=== PATIENT | female | born 1990 | race Two or more races ===

== ENCOUNTER 2016-07-31 14:47 | Emergency (ER) | payer OTHER ==
[2016-07-31 14:50] VITALS: BP 137/85; PULSE 79; TEMP 98; BMI 24.9
--- NOTE | 2016-07-31 15:06 | PDOC ---
History of Present Illness - General Chief Complaint: ,Possible Stated Complaint: POSSIBLE , LAB WORK Time Seen by Provider: 07/31/16 14:58 History Source: Patient - History of Present Illness Associated Symptoms: denies: nausea/vomiting Past History - Past Medical History Allergies/Adverse Reactions: Allergies Allergy/AdvReac Type Severity Reaction Status Date / Time acetaminophen [From Tylenol] Allergy Verified 07/31/16 14:51 aspirin Allergy Verified 07/31/16 14:51 Home Medications: Ambulatory Orders NK [No Known Home Medication] 07/31/16 - Reproductive History (#): 3 Para: 1 Spontaneous : 2 - Immunization History Immunization Up to Date: No - Psycho/Social/Smoking Cessation Hx Anxiety: No Suicidal Ideation: No Smoking History: Never smoked Have you smoked in the past 12 months: No Information on smoking cessation initiated: No Hx Alcohol Use: No Drug/Substance Use Hx: No Substance Use Type: None Review of Systems - Review of Systems Constitutional: No: Chills, Fever ABD/GI: No: Nausea, Vomiting : No: Dysuria *Physical Exam - Vital Signs Last Vital Signs Temp Pulse Resp BP Pulse Ox 98 F 79 18 137/85 98 07/31/16 14:48 07/31/16 14:48 07/31/16 14:48 07/31/16 14:48 07/31/16 14:48 - Physical Exam General Appearance: Yes: Appropriately Dressed. No: Apparent Distress HEENT: positive: Normal Voice Neck: positive: Supple Respiratory/Chest: negative: Respiratory Distress Gastrointestinal/Abdominal: positive: Soft. negative: Tender Integumentary: positive: Dry, Warm Neurologic: positive: Fully Oriented, Alert, Normal Mood/Affect Medical Decision Making - Medical Decision Making 07/31/16 15:00 26 yo F, no sig hx, here for test because of irreg menses. Not on control. No abd pain, dysuria, n/v. Pt well trish and stable w/ unremarkale exam. Upreg negative. Discharge w/ tumblers supervisor f/u 07/31/16 15:28 Pt requesting blood test for despite being told that urine test is able to detect early . Of note, pt has h/o presenting to ED for tests which are usually negative. When pt informed that we would not be getting a blood test, pt became angry and verbally abusive to staff but signed her discharge papers and left without incident 07/31/16 15:31 07/31/16 15:37 *DC/Admit/Observation/Transfer Diagnosis at time of Disposition: test negative - Discharge Dispostion Disposition: HOME Condition at time of disposition: Good - Patient Instructions Additional Instructions: prueba de embarazo es negativa hoy. Nuestra prueba de orina detecta el embarazo muy pronto, por lo que no hay necesidad de un anlisis de marcelino. Por favor, siga con NEWSPAPER PEDDLER segn sea necesario
[2016-07-31 15:22] LABS: URINE APPEARANCE CLEAR; URINE BILIRUBIN NEGATIVE (NEGATIVE); URINE BLOOD NEGATIVE (NEGATIVE); URINE COLOR YELLOW; URINE GLUCOSE (UA) NEGATIVE (NEGATIVE); URINE KETONE NEGATIVE (NEGATIVE); URINE LEUK ESTERASE NEGATIVE (NEGATIVE); URINE NITRITE NEGATIVE (NEGATIVE); URINE PROTEIN NEGATIVE (NEGATIVE); URINE UROBILINOGEN NEGATIVE E.U./dl (0.2-1.0)
== END 2016-07-31 15:34 | disposition home or self-care (01) ==
LOC: JERFT 14:47
DX: Z32.02 Encounter for pregnancy test, result negative (principal)
CPT/HCPCS: 81003; 84703; 99281-25

== ENCOUNTER 2016-08-23 12:59 | Emergency (ER) | payer OTHER ==
[2016-08-23 13:06] VITALS: BP 112/49; PULSE 78; TEMP 98.5; BMI 25.7
--- NOTE | 2016-08-23 13:47 | PDOC ---
History of Present Illness - General Chief Complaint: Vaginal Bleeding Stated Complaint: BLEEDING () Time Seen by Provider: 08/23/16 13:15 History Source: Patient, Pick Up Man Used Exam Limitations: Language Barrier - History of Present Illness Travel History: No Initial Comments: 08/23/16 14:52 26 yr female states LMP 05/25/16 had lower abd cramping for one month noticed light brown spotting yesterday and had positive test yesterday. Pt is 2 miscarriages at 8 weeks. Pt states she has no back pain no fever no chills. no urinary symptoms, Past History - Past Medical History Allergies/Adverse Reactions: Allergies Allergy/AdvReac Type Severity Reaction Status Date / Time acetaminophen [From Tylenol] Allergy Verified 08/23/16 13:06 aspirin Allergy Verified 08/23/16 13:06 Home Medications: Ambulatory Orders NK [No Known Home Medication] 07/31/16 Other medical history: NONE - Surgical History Abdominal Surgery: Yes (csection ) - Reproductive History LMP Normal: Yes Is Patient Now?: Yes (#): 4 Para: 1 Spontaneous : 2 - Immunization History Immunization Up to Date: No - Psycho/Social/Smoking Cessation Hx Anxiety: No Suicidal Ideation: No Smoking History: Never smoked Have you smoked in the past 12 months: No Hx Alcohol Use: No Drug/Substance Use Hx: No Substance Use Type: None Abd/GI Specific PMHX - Complaint Specific PMHX Colitis: No Diverticulitis: No Gall Bladder Disease: No GERD: No Hepatitis: No Irritable Bowel Synd (IBS): No Pancreatitis: No GI Ulcer Disease: No Review of Systems - Review of Systems Able to Perform ROS?: Yes Is the patient limited Cymraes proficient: No Constitutional: No: Symptoms Reported, Unintentional Wgt. Loss Respiratory: No: Symptoms reported Cardiac (ROS): No: Symptoms Reported ABD/GI: Yes: Symptoms Reported : No: Symptoms Reported *Physical Exam - Vital Signs Last Vital Signs Temp Pulse Resp BP Pulse Ox 98.5 F 78 20 112/49 100 08/23/16 13:01 08/23/16 13:01 08/23/16 13:01 08/23/16 13:01 08/23/16 13:01 - Physical Exam General Appearance: Yes: Nourished, Appropriately Dressed HEENT: positive: EOMI, ASHWIN Neck: positive: Supple Respiratory/Chest: positive: Lungs Clear, Normal Breath Sounds Cardiovascular: positive: Regular Rhythm, Regular Rate Female Pelvic Exam: positive: cervical os closed, other (light brown spotting ) Gastrointestinal/Abdominal: positive: Normal Bowel Sounds, Soft. negative: Tender Musculoskeletal: positive: Normal Inspection Extremity: positive: Normal Capillary Refill, Normal Inspection, Normal Range of Motion ED Treatment Course - LABORATORY CBC & Chemistry Diagram: 08/23/16 14:57 Medical Decision Making - Medical Decision Making 08/23/16 14:54 cc: spotting LMP 05/25/16 approx 12 weeks with lower abd cramping and spotting afebrile no vaginal discharge or urinary symptoms will r/o ectopic r/o miscarriage 08/23/16 follow up with your window draper in 48hrs for repeat blood work and Ultrasound or return to the ER. 08/23/16 18:38 *DC/Admit/Observation/Transfer Diagnosis at time of Disposition: Threatened - Referrals Referrals: Herson Rousseau MD [Primary Care Provider] - Romina Fisher MD [Staff Physician] - - Patient Instructions Additional Instructions: please call your OB tomorrow to make appointment to see them in 2 days return to ER in 2 days for follow up blood work and Ultrasound avoid any sexual activity until symptoms have stopped. Please drink pleanty of water to stay hydrated Return to the ER for any pain, heavy bleeding or other concerns Por favor llame a us OB maana para hacer ana para verlos en 2 grimes Volver a ER en 2 grimes para el seguimiento del trabajo de marcelino y ultrasonido Evitar cualquier actividad sexual hasta que los sntomas se hayan detenido. Por favor, ayo abundantemente de agua para mantenerse hidratado Regrese al ER para cualquier dolor, sangrado abundante u otras preocupaciones Print Language: BULGARIAN
[2016-08-23 15:03] LABS: BASOPHIL 0.4 % (0-2.0); EOSINOPHIL 0.5 % (0-4.5); MCH 30.3 pg (25.7-33.7); MCHC 33.2 g/dl (32.0-36.0); MEAN CELL VOLUME 91.4 fl (80-96); MEAN PLT VOLUME 7.4 fl (7.5-11.1); PLATELET COUNT 315 K/MM3 (134-434); RDW 13.1 % (11.6-15.6); WHITE BLOOD COUNT 8.4 K/mm3 (4.0-10.0)
[2016-08-23 15:10] LABS: URINE APPEARANCE CLEAR; URINE BILIRUBIN NEGATIVE (NEGATIVE); URINE BLOOD NEGATIVE (NEGATIVE); URINE COLOR LTYELLOW; URINE GLUCOSE (UA) NEGATIVE (NEGATIVE); URINE KETONE NEGATIVE (NEGATIVE); URINE LEUK ESTERASE NEGATIVE (NEGATIVE); URINE NITRITE NEGATIVE (NEGATIVE); URINE PROTEIN NEGATIVE (NEGATIVE); URINE UROBILINOGEN NEGATIVE E.U./dl (0.2-1.0)
[2016-08-23 15:16] LABS: INR 1.04 (0.82-1.09); PROTHROMBIN TIME (PATIENT) 11.5 SEC (9.98-11.88)
[2016-08-23 18:42] LABS: URINE APPEARANCE CLEAR; URINE BILIRUBIN NEGATIVE (NEGATIVE); URINE BLOOD NEGATIVE (NEGATIVE); URINE COLOR YELLOW; URINE GLUCOSE (UA) NEGATIVE (NEGATIVE); URINE KETONE TRACE (NEGATIVE); URINE LEUK ESTERASE NEGATIVE (NEGATIVE); URINE NITRITE NEGATIVE (NEGATIVE); URINE PROTEIN NEGATIVE (NEGATIVE); URINE UROBILINOGEN NEGATIVE E.U./dl (0.2-1.0)
== END 2016-08-23 19:38 | disposition home or self-care (01) ==
LOC: JER 12:59
DX: O20.0 Threatened abortion (principal); Z3A.12 12 weeks gestation of pregnancy
CPT/HCPCS: 36415; 76817-TC; 81003; 84702; 84703; 85025; 85610; 86850; 86900; 86901; 99283-25

== ENCOUNTER 2016-08-25 09:55 | Emergency (ER) | payer OTHER ==
[2016-08-25 10:06] VITALS: BP 109/57; PULSE 78; TEMP 98; BMI 25.7
--- NOTE | 2016-08-25 11:08 | PDOC ---
History of Present Illness - General Chief Complaint: Revisit, Lab Variance Stated Complaint: FOLLOW-UP Time Seen by Provider: 08/25/16 10:33 History Source: Patient Exam Limitations: No Limitations - History of Present Illness Initial Comments: 08/25/16 11:30 Patient return to emergency department for reevaluation of the hCG and ultrasound. Was seen here on August 23 [place] [id number]. States has continued cramping, however no bleeding, no fevers, no nausea vomiting but states feels generally malaise . 08/25/16 11:30 Past History - Travel Traveled outside of the country in the last 30 days: No Close contact w/someone who was outside of country & ill: No - Past Medical History Allergies/Adverse Reactions: Allergies Allergy/AdvReac Type Severity Reaction Status Date / Time acetaminophen [From Tylenol] Allergy Verified 08/25/16 10:02 aspirin Allergy Verified 08/25/16 10:02 Home Medications: Ambulatory Orders NK [No Known Home Medication] 07/31/16 Other medical history: DENIES. - Surgical History Abdominal Surgery: Yes (csection ) - Reproductive History (#): 4 Para: 1 Therapeutic (s) & number: No Spontaneous : 2 - Immunization History Immunization Up to Date: No - Psycho/Social/Smoking Cessation Hx Anxiety: No Suicidal Ideation: No Smoking History: Never smoked Have you smoked in the past 12 months: No Hx Alcohol Use: No Drug/Substance Use Hx: No Substance Use Type: None Review of Systems - Review of Systems Able to Perform ROS?: Yes Is the patient limited Burkinan proficient: Yes Constitutional: Yes: Symptoms Reported, See HPI, Malaise HEENTM: Yes: Symptoms Reported, See HPI Respiratory: No: Symptoms reported ABD/GI: Yes: Symptoms Reported, See HPI, Abdominal cramping (low ) : Yes: See HPI. No: Symptoms Reported Musculoskeletal: Yes: See HPI, Muscle Pain. No: Symptoms Reported Integumentary: Yes: Symptoms Reported All Other Systems: Reviewed and Negative *Physical Exam - Vital Signs Last Vital Signs Temp Pulse Resp BP Pulse Ox 98 F 78 19 109/57 99 08/25/16 10:02 08/25/16 10:02 08/25/16 10:02 08/25/16 10:02 08/25/16 10:02 - Physical Exam General Appearance: Yes: Nourished, Appropriately Dressed, Apparent Distress, Mild Distress HEENT: positive: ASHWIN, Normal ENT Inspection, TMs Normal, Pharynx Normal Neck: positive: Tender, Supple. negative: Lymphadenopathy (R), Lymphadenopathy (L) Respiratory/Chest: positive: Lungs Clear, Normal Breath Sounds Cardiovascular: positive: Regular Rhythm, Regular Rate Gastrointestinal/Abdominal: positive: Normal Bowel Sounds, Soft. negative: Tender, Guarding, Rebound Musculoskeletal: positive: Normal Inspection. negative: CVA Tenderness Extremity: positive: Normal Capillary Refill, Normal Inspection, Normal Range of Motion Integumentary: positive: Normal Color, Dry, Warm, Pale Neurologic: positive: sheet heater II-XII NML intact, Fully Oriented, Alert, Normal Mood/ Affect, Normal Response, Motor Strength 08/18 ED Treatment Course - RADIOLOGY Radiology Studies Ordered: Category Date Time Status TRANSVAGINAL US PREG [US] Stat Ultrasound 08/25/16 11:05 Ordered Medical Decision Making - Medical Decision Making 08/25/16 11:06 08/25/16 11:06 08/25/16 11:32 08/25/16 11:34 08/25/16 12:56 Ultrasound reveals intrauterine with approximately 5-6 weeks gestational age, heart rate of 120 right ovarian cyst with some fluid. Beta hCG 23,000 which is appropriately doubled from 15,002 days ago. Follow-up with OB/ INVESTIGATOR INTERNAL AFFAIRS in 4 days as scheduled, and understands needs to return for fever, bleeding , worsen pain or problems *DC/Admit/Observation/Transfer Diagnosis at time of Disposition: Normal in first trimester - Discharge Dispostion Disposition: HOME Condition at time of disposition: Stable Admit: No - Patient Instructions Printed Discharge Instructions: DI for Abdominal Pain -- Early Additional Instructions: Rest, drink lots of fluids: Teas, water, soups Kari jessica, carbonated beverages for the bubbles May try peppermint teas Avoid heavy , spicy or fatty foods until symptoms have resolved Avoid contact with others until fevers and symptoms resolved Lots of handwashing and good hygiene Continue [id number] medications for symptomatic relief Followup with private physician in one to 2 days as needed See MEDIA LIAISON OFFICER as scheduled in 4 days Return to emergency department for worsened symptoms, fevers, dehydration
== END 2016-08-25 12:59 | disposition home or self-care (01) ==
LOC: JERFT 09:55
DX: O26.891 Other specified pregnancy related conditions, first trimester (principal); O34.81 Maternal care for other abnormalities of pelvic organs, first trimester; N83.291 Other ovarian cyst, right side; Z3A.01 Less than 8 weeks gestation of pregnancy
CPT/HCPCS: 36415; 76817-TC; 84702; 99281-25

== ENCOUNTER 2016-09-12 10:32 | Emergency (ER) | payer OTHER ==
[2016-09-12 10:38] VITALS: BMI 26.1
[2016-09-12] MEDS ORDERED: ONDANSETRON 4 MG/2 ML VIAL ONE (11:56)
--- NOTE | 2016-09-12 11:57 | PDOC ---
History of Present Illness - General History Source: Patient, Old Records Exam Limitations: No Limitations - History of Present Illness Initial Comments: 09/12/16 13:00 The patient is a 26 year old female who is currently 6 weeks , A2 with no significant past medical history, who presents to the emergency department with vaginal bleeding, abdominal pain, chills, nausea, vomit and dizziness for the past 3 weeks. She states that her vaginal bleeding is mild in nature. She also states that her abdominal pain ranges from mild to moderare, with radiation to the back. She notes that standing exacerbates her pain, especially in the back. The patient was seen in the ED twice before this visit and had blood work and ultrasounds that were normal for her current . She states that since her last visit to the ED on 08/25/2016, she has seen her BODY SHOP ESTIMATOR who sent her to do another ultrasound, which she does not know the results of. She notes hat she has been attempting to reach her BODY SHOP ESTIMATOR for the past 4 days and finally got in touch today, whom advised her to come to the ED for evaluation. The patient denies chest pain, shortness of breath and headache. Denies fever, diarrhea and constipation. Denies dysuria, frequency, urgency and hematuria. Allergies: Tylenol Past surgical history: Social history: No alcohol, tobacco or drug use reported BODY SHOP ESTIMATOR - Dr. Ambar Damon <Rosas Nolasco - Last Filed: 09/12/16 13:00> - General History Source: Patient Exam Limitations: No Limitations <Vi Espinoza - Last Filed: 09/13/16 08:15> - General Chief Complaint: Vaginal Bleeding Stated Complaint: PAIN (8 VAGINAL BLEED) Time Seen by Provider: 09/12/16 10:52 Past History <Rosas Nolasco - Last Filed: 09/12/16 13:00> - Past Medical History Other medical history: denies - Surgical History Abdominal Surgery: Yes (csection ) - Reproductive History (#): 4 Para: 1 Therapeutic (s) & number: No Spontaneous : 2 - Immunization History Immunization Up to Date: No - Psycho/Social/Smoking Cessation Hx Anxiety: No Suicidal Ideation: No Smoking History: Never smoked Have you smoked in the past 12 months: No Information on smoking cessation initiated: No Hx Alcohol Use: No Drug/Substance Use Hx: No Substance Use Type: None <Vi Espinoza - Last Filed: 09/13/16 08:15> - Past Medical History Allergies/Adverse Reactions: Allergies Allergy/AdvReac Type Severity Reaction Status Date / Time acetaminophen [From Tylenol] Allergy Verified 09/12/16 10:38 aspirin Allergy Verified 09/12/16 10:38 Home Medications: Ambulatory Orders Metoclopramide HCl [Reglan] 5 mg PO TID PRN #21 tablet 09/12/16 Review of Systems - Review of Systems Able to Perform ROS?: Yes Comments:: 09/12/16 13:01 GENERAL/CONSTITUTIONAL: (+) Chills. No fever. No weakness. HEAD, EYES, EARS, NOSE AND THROAT: No change in vision. No ear pain or discharge. No sore throat. CARDIOVASCULAR: No chest pain or shortness of breath RESPIRATORY: No cough, wheezing, or hemoptysis. GASTROINTESTINAL: (+) Abdominal pain, nausea, vomit. No diarrhea or constipation. GENITOURINARY: No dysuria, frequency, or change in urination. MUSCULOSKELETAL: (+) Back pain. No joint or muscle swelling or pain. No neck pain. SKIN: No rash NEUROLOGIC: (+) Dizziness. No headache, loss of consciousness, or change in strength/sensation. ENDOCRINE: No increased thirst. No abnormal weight change HEMATOLOGIC/LYMPHATIC: No anemia, easy bleeding, or history of blood clots. ALLERGIC/IMMUNOLOGIC: No hives or skin allergy. <Rosas Nolasco - Last Filed: 09/12/16 13:00> *Physical Exam - Vital Signs Last Vital Signs Temp Pulse Resp BP Pulse Ox 97.9 F 75 18 103/61 100 09/12/16 10:36 09/12/16 10:36 09/12/16 10:36 09/12/16 10:36 09/12/16 10:36 - Physical Exam Comments: 09/12/16 13:02 GENERAL: Awake, alert, and fully oriented, in no acute distress HEAD: No signs of trauma, normocephalic, atraumatic EYES: PERRLA, EOMI, sclera anicteric, conjunctiva clear ENT: Auricles normal inspection, hearing grossly normal, nares patent, oropharynx clear without exudates. Moist mucosa NECK: Normal ROM, supple, no lymphadenopathy, JVD, or masses LUNGS: No distress, speaks full sentences, clear to auscultation bilaterally HEART: Regular rate and rhythm, normal S1 and S2, no murmurs, rubs or gallops, peripheral pulses normal and equal bilaterally. ABDOMEN: Soft, nontender, normoactive bowel sounds. No guarding, no rebound. No masses EXTREMITIES: Normal inspection, Normal range of motion, no edema. No clubbing or cyanosis. NEUROLOGICAL: Cranial nerves II through XII grossly intact. Normal speech, normal gait, no focal sensorimotor deficits SKIN: Warm, Dry, normal turgor, no rashes or lesions noted. <Rosas Nolasco - Last Filed: 09/12/16 13:00> - Vital Signs Last Vital Signs Temp Pulse Resp BP Pulse Ox 97.9 F 75 18 103/61 100 09/12/16 10:36 09/12/16 10:36 09/12/16 10:36 09/12/16 10:36 09/12/16 10:36 <Vi Espinoza - Last Filed: 09/13/16 08:15> ED Treatment Course - LABORATORY CBC & Chemistry Diagram: 09/12/16 12:10 09/12/16 12:10 - ADDITIONAL ORDERS Additional order review: Laboratory Results 09/12/16 09/12/16 09/12/16 12:10 12:10 12:10 Sodium 135 L Potassium 4.0 Chloride 101 Carbon Dioxide 28 Anion Gap 6 L BUN 12 Creatinine 0.6 Creat Clearance w eGFR > 60 Random Glucose 87 Calcium 9.2 Total Bilirubin 0.8 AST 10 L ALT 15 Alkaline Phosphatase 53 Total Protein 7.6 Albumin 3.8 Beta HCG, Quant 093400.2 Urine Color Yellow Urine Appearance Clear Urine pH 6.0 Urine Protein Negative Urine Glucose (UA) Negative Urine Ketones Negative Urine Blood 1+ H Urine Nitrite Negative Urine Bilirubin Negative Urine Urobilinogen Negative Ur Leukocyte Esterase Trace H Blood Type A POSITIVE Antibody Screen Negative 09/12/16 12:10 RBC 3.98 MCV 90.6 MCHC 35.2 RDW 12.7 MPV 7.7 Neutrophils % 81.5 Lymphocytes % 12.8 D Monocytes % 5.3 Eosinophils % 0.0 D Basophils % 0.4 - Medications Given in the ED: ED Medications Discontinued Medications Generic Name Dose Route Start Last Admin Trade Name Freq PRN Reason Stop Dose Admin Metoclopramide HCl 10 mg 09/12/16 12:05 09/12/16 12:13 Reglan Injection - IVPB 09/12/16 12:06 10 mg ONCE ONE Administration <Rosas Nolasco - Last Filed: 09/12/16 13:00> - LABORATORY CBC & Chemistry Diagram: 09/12/16 12:10 09/12/16 12:10 <Vi Espinoza - Last Filed: 09/13/16 08:15> Medical Decision Making - Medical Decision Making 09/12/16 11:57 A portion of this note was documented by scribe services under my direction. I have reviewed the details of the note, within reason, and agree with the documentation with the following case summary and management plan written by me. Nursing documentation reviewed and incorporated into medical decision making 26 yo F A2 Presenting to the ER with lower abdominal pain and vaginal spotting These symptoms have been present for the past 3 weeks She has been seen in the ER twice previously She was seen by her test tube maker, is s/p US She was seen by a clinic on [facility] 4 days ago No fevers or chills No flank pain Pt does have back pain Pt has nausea and vomiting and dyspepsia She attempted to contact her test tube maker but they recommended that she come to the ER because their clinic was full On examination Mild lower abdominal tenderness Pt did not permit a pelvic examination as she has had multiple over the past 3 weeks, last one 4 days ago 09/12/16 13:03 Laboratory Tests 08/23/16 08/25/16 09/12/16 16:40 10:49 12:10 WBC 9.6 Hgb 12.7 Hct 36.0 Plt Count 400 D BUN Creatinine Beta HCG, Quant 95852.1 47319.0 Urine Blood Urine Nitrite Ur Leukocyte Esterase Blood Type 09/12/16 09/12/16 09/12/16 12:10 12:10 12:10 WBC Hgb Hct Plt Count BUN 12 Creatinine 0.6 Beta HCG, Quant 850831.2 Urine Blood 1+ H Urine Nitrite Negative Ur Leukocyte Esterase Trace H Blood Type A POSITIVE Pending transvaginal ultrasound 09/12/16 14:58 Laboratory Tests 09/12/16 12:10 Urine Blood 1+ H Ur Leukocyte Esterase Trace H Urine RBC 4 Urine WBC 4 Ur Epithelial Cells Rare Urine Bacteria Rare Single live IUP HR 129 No cysts or free fluid seen Clinical impression: abdominal pain in , vaginal spotting <Vi Espinoza - Last Filed: 09/13/16 08:15> *DC/Admit/Observation/Transfer - Attestations Scribe Attestion: 09/12/16 13:00 Documentation prepared by Rosas Nolasco, acting as medical microbiologist for Vi Espinoza MD <Rosas Nolasco - Last Filed: 09/12/16 13:00> - Discharge Dispostion Admit: No <Vi Espinoza - Last Filed: 09/13/16 08:15> Diagnosis at time of Disposition: Threatened - Discharge Dispostion Disposition: HOME Condition at time of disposition: Stable - Prescriptions Prescriptions: Metoclopramide HCl [Reglan] 5 mg PO TID PRN #21 tablet PRN Reason: Nausea - Referrals Referrals: Herson Rousseau MD [Primary Care Provider] - Romina Fisher MD [Staff Physician] - - Patient Instructions Printed Discharge Instructions: DI for Vaginal Bleeding During Additional Instructions: Briana por venir a la pavan de emergencias Por favor, siga con obstetra Regreso a la pavan de urgencias para sangrado vaginal intenso - saturacin de 2 almohadillas / hora x 2 horas, dolor intenso, aturdimiento o mareos Revise todos jackie laboratorios y ultrasonidos Thank you for coming in to the ER Please follow up with your regroover Return to the ER for heavy vaginal bleeding - saturating 2 pads/hour x 2 hours, severe pain, lightheadedness or dizziness Please review all your labs and ultrasound
[2016-09-12] MEDS ORDERED: METOCLOPRAMIDE HCL INJECTION 10 MG/2 ML VIAL IVPB ONE (12:05)
[2016-09-12] MEDS ORDERED: METOCLOPRAMIDE HCL INJECTION 10 MG/2 ML VIAL ONE (12:08)
[2016-09-12 12:24] LABS: BASOPHIL 0.4 % (0-2.0); MCH 31.9 pg (25.7-33.7); MCHC 35.2 g/dl (32.0-36.0); MEAN CELL VOLUME 90.6 fl (80-96); MEAN PLT VOLUME 7.7 fl (7.5-11.1); NEUTROPHILS 81.5 % (42.8-82.8); PLATELET COUNT 400 K/MM3 (134-434); RDW 12.7 % (11.6-15.6); WHITE BLOOD COUNT 9.6 K/mm3 (4.0-10.0)
[2016-09-12 12:34] LABS: URINE APPEARANCE CLEAR; URINE BILIRUBIN NEGATIVE (NEGATIVE); URINE COLOR YELLOW; URINE GLUCOSE (UA) NEGATIVE (NEGATIVE); URINE KETONE NEGATIVE (NEGATIVE); URINE NITRITE NEGATIVE (NEGATIVE); URINE PROTEIN NEGATIVE (NEGATIVE); URINE UROBILINOGEN NEGATIVE E.U./dl (0.2-1.0)
[2016-09-12 12:41] LABS: ALBUMIN 3.8 g/dl (3.4-5.0); ANION GAP 6 (8-16); BILIRUBIN,TOTAL 0.8 mg/dL (0.2-1.0); CALCIUM 9.2 mg/dL (8.5-10.1); CO2 28 mmol/L (21-32); CREATININE 0.6 mg/dL (0.55-1.02); GLUCOSE,RANDOM 87 mg/dL (74-106); SGOT/AST 10 U/L (15-37); SGPT/ALT 15 U/L (12-78)
[2016-09-12 12:56] LABS: URINE BLOOD 1+ (NEGATIVE); URINE LEUK ESTERASE TRACE (NEGATIVE)
[2016-09-12 12:57] LABS: ALK PHOS 53 U/L (45-117); TOT PROT 7.6 g/dl (6.4-8.2)
[2016-09-12 13:01] LABS: URINE BACTERIA RARE /hpf (NONE SEEN); URINE MUCUS MANY; URINE RBC 4 /hpf (0-3); URINE WBC 4 /hpf (3-5)
[2016-09-12 15:42] VITALS: BP 104/65; PULSE 67; TEMP 97.7
== END 2016-09-12 15:41 | disposition home or self-care (01) ==
LOC: JER 10:32
PROC: 3E033GC Introduction of Other Therapeutic Substance into Peripheral Vein, Percutaneous Approach (ICD-10-PCS; principal; 2016-09-12)
DX: O20.0 Threatened abortion (principal); Z3A.01 Less than 8 weeks gestation of pregnancy
CPT/HCPCS: 36415; 76801-TC; 80053; 81003; 81015; 84702; 85025; 86850; 86900; 86901; 87086; 96374; 99284-25

== ENCOUNTER → 2016-11-03 | Emergency (ER) | payer OTHER ==
[~2016-11-03] MED LIST: ONDANSETRON 4 MG/2 ML VIAL IVPUSH ONE; ONDANSETRON 4 MG/2 ML VIAL ONE; SODIUM CHLORIDE 1,000 ML IV STA
[2016-11-03 21:36] VITALS: BMI 24.3
--- NOTE | 2016-11-03 22:55 | PDOC ---
History of Present Illness <Yamileth Malagon - Last Filed: 11/04/16 02:27> - General History Source: Patient Exam Limitations: No Limitations - History of Present Illness Travel History: No Initial Comments: 11/03/16 22:54 26-year-old female presents to the emergency department complaining of vaginal spotting 6 hours with right upper quadrant abdominal discomfort with n/v (non bilious, non bloody). Pain is described as 4/10 dull nonradiating intermittent discomfort area the pain is exacerbated after eating and alleviated minimally at rest. Patient denies fever, chills, chest pain, shortness of breath, urinary symptoms: Frequency/urgency/hesitancy, hematuria. Timing/Duration: reports: intermittent Quality: reports: mild Abdominal Pain Onset Location: reports: RUQ Pain Radiation: reports: no radiation <Jax Fuller - Last Filed: 11/04/16 02:39> - General Chief Complaint: Pain Stated Complaint: VOMITING 15 WEEKS Time Seen by Provider: 11/03/16 22:23 Past History <Yamileth Malagon - Last Filed: 11/04/16 02:27> - Surgical History Abdominal Surgery: Yes (csection ) - Reproductive History (#): 4 Para: 1 Therapeutic (s) & number: No Spontaneous : 2 - Immunization History Immunization Up to Date: No - Psycho/Social/Smoking Cessation Hx Anxiety: No Suicidal Ideation: No Smoking History: Never smoked Have you smoked in the past 12 months: No Information on smoking cessation initiated: No Hx Alcohol Use: No Drug/Substance Use Hx: No Substance Use Type: None <AlinaJax - Last Filed: 11/04/16 02:39> - Past Medical History Allergies/Adverse Reactions: Allergies Allergy/AdvReac Type Severity Reaction Status Date / Time acetaminophen [From Tylenol] Allergy Verified 11/03/16 21:31 aspirin Allergy Verified 11/03/16 21:31 Home Medications: Ambulatory Orders NK [No Known Home Medication] 10/13/16 Abd/GI Specific PMHX - Complaint Specific PMHX Colitis: No Diverticulitis: No Gall Bladder Disease: No GERD: No Hepatitis: No Irritable Bowel Synd (IBS): No Pancreatitis: No GI Ulcer Disease: No <Jax Fuller - Last Filed: 11/04/16 02:39> Review of Systems - Review of Systems Able to Perform ROS?: Yes Comments:: 11/03/16 22:53 CONSTITUTIONAL: Absent: fever, chills, diaphoresis, generalized weakness, malaise, loss of appetite HEENT: Absent: rhinorrhea, nasal congestion, throat pain, throat swelling, difficulty swallowing, mouth swelling, ear pain, eye pain, visual Changes CARDIOVASCULAR: Absent: chest pain, loss of consciousness, palpitations, irregular heart rate, peripheral edema RESPIRATORY: Absent: cough, shortness of breath, dyspnea with exertion, orthopnea, wheezing, stridor, hemoptysis GASTROINTESTINAL: RUQ pain, +n/v Absent: abdominal distension, diarrhea, constipation, melena, hematochezia GENITOURINARY: Absent: dysuria, frequency, urgency, hesitancy, hematuria, flank pain, genital pain MUSCULOSKELETAL: Absent: myalgia, arthralgia, joint swelling SKIN: Absent: rash, itching, pallor HEMATOLOGIC/IMMUNOLOGIC: Absent: easy bleeding, easy bruising, lymphadenopathy, frequent infections ENDOCRINE: Absent: unexplained weight gain, unexplained weight loss, heat intolerance, cold intolerance NEUROLOGIC: Absent: headache, focal weakness or paresthesias, dizziness, unsteady gait, seizure, mental status changes, bladder or bowel incontinence PSYCHIATRIC: Absent: anxiety, depression, suicidal or homicidal ideation, hallucinations. Is the patient limited Malaysian proficient: No <Jax Fuller - Last Filed: 11/04/16 02:39> *Physical Exam - Vital Signs Last Vital Signs Temp Pulse Resp BP Pulse Ox 98.3 F 102 H 19 117/68 100 11/03/16 21:32 11/03/16 21:32 11/03/16 21:32 11/03/16 21:32 11/03/16 21:32 <Yamileth Malagon - Last Filed: 11/04/16 02:27> - Vital Signs Last Vital Signs Temp Pulse Resp BP Pulse Ox 98.3 F 102 H 19 117/68 100 11/03/16 21:32 11/03/16 21:32 11/03/16 21:32 11/03/16 21:32 11/03/16 21:32 - Physical Exam Comments: 11/03/16 22:54 GENERAL: Well developed, well nourished. Awake and alert. No acute distress. HEENT: Normocephalic, atraumatic. PERRLA, EOMI. No conjunctival pallor. Sclera are non- icteric. Moist mucous membranes. Oropharynx is clear. NECK: Supple. Full ROM. No JVD. Carotid pulses 2+ and symmetric, without bruits. No thyromegaly. No lymphadenopathy. CARDIOVASCULAR: Regular rate and rhythm. No murmurs, rubs, or gallops. Distal pulses are 2+ and symmetric. PULMONARY: No evidence of respiratory distress. Lungs clear to auscultation bilaterally. No wheezing, rales or rhonchi. ABDOMINAL: +RUQ pain on palp Soft. Non-distended. No rebound or guarding. No organomegaly. Normoactive bowel sounds. MUSCULOSKELETAL Normal range of motion at all joints. No bony deformities or tenderness. No CVA tenderness. EXTREMITIES: No cyanosis. No clubbing. No edema. No calf tenderness. SKIN: Warm and dry. Normal capillary refill. No rashes. No jaundice. NEUROLOGICAL: Alert, awake, appropriate. Cranial nerves 2-12 intact. No deficits to light touch and temperature in face, upper extremities and lower extremities. No motor deficits in the in face, upper extremities and lower extremities. Normoreflexic in the upper and lower extremities. Normal speech. Toes are down- going bilaterally. Gait is normal without ataxia. PSYCHIATRIC: Cooperative. Good eye contact. Appropriate mood and affect. <Jax Fuller - Last Filed: 11/04/16 02:39> ED Treatment Course - LABORATORY CBC & Chemistry Diagram: 11/03/16 22:40 11/03/16 22:40 - ADDITIONAL ORDERS Additional order review: Laboratory Results 11/03/16 11/03/16 11/03/16 22:40 22:40 22:40 Sodium 139 Potassium 3.6 Chloride 105 Carbon Dioxide 27 Anion Gap 7 L BUN 7 D Creatinine 0.4 L Creat Clearance w eGFR > 60 Random Glucose 72 L Calcium 8.8 Total Bilirubin 0.7 AST 11 L D ALT 10 L D Alkaline Phosphatase 53 Total Protein 6.7 Albumin 3.1 L Total Amylase 123 H Lipase 396 H Beta HCG, Quant 79963.9 Urine Color Colorless Urine Appearance Clear Urine pH 7.0 D Urine Protein Negative Urine Glucose (UA) Negative Urine Ketones Negative Urine Blood 1+ H Urine Nitrite Negative Urine Bilirubin Negative Urine Urobilinogen Negative Ur Leukocyte Esterase Negative Urine RBC None Urine WBC None Ur Epithelial Cells Rare Urine Bacteria Rare Blood Type A POSITIVE Antibody Screen Negative 11/03/16 22:40 RBC 3.67 MCV 90.5 MCHC 33.8 RDW 13.1 MPV 6.9 L Neutrophils % 71.8 Lymphocytes % 19.2 Monocytes % 8.2 Eosinophils % 0.1 D Basophils % 0.7 - Medications Given in the ED: ED Medications Discontinued Medications Generic Name Dose Route Start Last Admin Trade Name Carmeloq PRN Reason Stop Dose Admin Sodium Chloride 1,000 mls @ 1,000 mls/hr 11/03/16 22:57 11/03/16 23:24 Normal Saline - IV 11/03/16 23:56 1,000 mls/hr ASDIR STA Administration Ondansetron HCl 4 mg 11/03/16 22:57 11/03/16 23:24 Zofran Injection IVPUSH 11/03/16 22:58 4 mg ONCE ONE Administration <Yamileth Malagon - Last Filed: 11/04/16 02:27> - LABORATORY CBC & Chemistry Diagram: 11/03/16 22:40 11/03/16 22:40 <Jax Fuller - Last Filed: 11/04/16 02:39> Progress Note - Progress Note Progress Note: FINDINGS: Ultrasound : There is a single live IUP in cephalic presentation with estimated age 16 weeks 2 days. There is a normal heart rate of 150 beats per minutes. There is a posterior placenta without previa or abruption. Normal amount of amniotic fluid for age. Left ovary measures 3.2 cm in length, appears normal and demonstrates normal flow. Right ovary not identified. Pelvic duplex colon there is normal arterial flow the left ovary. IMPRESSION: No definite abnormalities identified. Recommend followup level II ultrasound for anatomic survey. FINDINGS: Upper quadrant ultrasound:The liver is normal, without mass or biliary duct dilation. Tiny gallstones noted without secondary findings for cholecystitis. The CBD is not dilated and measures4 millimeters in diameter. Right kidney measures 10.0centimeters in length and is unremarkable. The visualized aorta and IVC are normal. Pancreas is partially obscured, but appears normal. Abdominal duplex: The main portal vein demonstrates normal hepatopedal flow. IMPRESSION: Tiny gallstones without secondary findings of cholecystitis. <Jax Fuller - Last Filed: 11/04/16 02:39> Medical Decision Making - Medical Decision Making 11/04/16 02:27 Patient Name: Preethi Haney THIS IS A PRELIMINARYREPORT FROM [facility] [employer] ENGINE[facility] EXAM: Ultrasound abdomen limited right upper quadrant and limited abdominal duplex IMAGES: 61 INDICATION: Right upper quadrant pain DATE OF SERVICE: 2016-11-04 00:31:42.0 COMPARISON: none FINDINGS: Upper quadrant ultrasound:The liver is normal, without mass or biliary duct dilation. Tiny gallstones noted without secondary findings for cholecystitis. The CBD is not dilated and measures4 millimeters in diameter. Right kidney measures 10.0centimeters in length and is unremarkable. The visualized aorta and IVC are normal. Pancreas is partially obscured, but appears normal. Abdominal duplex: The main portal vein demonstrates normal hepatopedal flow. IMPRESSION: Tiny gallstones without secondary findings of cholecystitis. THIS DOCUMENT HAS BEEN ELECTRONICALLY SIGNED Patient Name: Preethi Haney THIS IS A PRELIMINARYREPORT FROM [facility] EXAM: Ultrasound and pelvic duplex IMAGES: 20 INDICATION: Vaginal bleeding DATE OF SERVICE: 2016-11-04 00:50:39.0 COMPARISON: none FINDINGS: Ultrasound : There is a single live IUP in cephalic presentation with estimated age 16 weeks 2 days. There is a normal heart rate of 150 beats per minutes. There is a posterior placenta without previa or abruption. Normal amount of amniotic fluid for age. Left ovary measures 3.2 cm in length, appears normal and demonstrates normal flow. Right ovary not identified. Pelvic duplex colon there is normal arterial flow the left ovary. IMPRESSION: No definite abnormalities identified. Recommend followup level II ultrasound for anatomic survey. THIS DOCUMENT HAS BEEN ELECTRONICALLY SIGNED <Yamileth Malagon - Last Filed: 11/04/16 02:27> *DC/Admit/Observation/Transfer <Yamileth Malagon - Last Filed: 11/04/16 02:27> - Discharge Dispostion Admit: No <Jax Fuller - Last Filed: 11/04/16 02:39> Diagnosis at time of Disposition: Gall stones - Discharge Dispostion Disposition: HOME Condition at time of disposition: Stable - Referrals Referrals: Herson Rousseau MD [Primary Care Provider] - Diamond Roque [Non Staff, Medical] - - Patient Instructions Printed Discharge Instructions: DI for Gallstones Additional Instructions: Increase fluids Follow up with the signs sales representative Return to the ER for severe/persistent/worsening symptoms Print Language: MALAWIAN
[2016-11-03 23:20] LABS: BASOPHIL 0.7 % (0-2.0); EOSINOPHIL 0.1 % (0-4.5); MCH 30.6 pg (25.7-33.7); MCHC 33.8 g/dl (32.0-36.0); MEAN CELL VOLUME 90.5 fl (80-96); MEAN PLT VOLUME 6.9 fl (7.5-11.1); NEUTROPHILS 71.8 % (42.8-82.8); PLATELET COUNT 326 K/MM3 (134-434); RDW 13.1 % (11.6-15.6)
[2016-11-03 23:22] LABS: URINE APPEARANCE CLEAR; URINE BILIRUBIN NEGATIVE (NEGATIVE); URINE BLOOD 1+ (NEGATIVE); URINE COLOR COLORLESS; URINE GLUCOSE (UA) NEGATIVE (NEGATIVE); URINE KETONE NEGATIVE (NEGATIVE); URINE LEUK ESTERASE NEGATIVE (NEGATIVE); URINE NITRITE NEGATIVE (NEGATIVE); URINE PROTEIN NEGATIVE (NEGATIVE); URINE UROBILINOGEN NEGATIVE mg/dL (0.2-1.0)
[2016-11-03 23:45] LABS: ALBUMIN 3.1 g/dl (3.4-5.0); AMYLASE 123 U/L (25-115); ANION GAP 7 (8-16); BILIRUBIN,TOTAL 0.7 mg/dL (0.2-1.0); CALCIUM 8.8 mg/dL (8.5-10.1); CO2 27 mmol/L (21-32); CREATININE 0.4 mg/dL (0.55-1.02); GLUCOSE,RANDOM 72 mg/dL (74-106); SGOT/AST 11 U/L (15-37); SGPT/ALT 10 U/L (12-78); TOT PROT 6.7 g/dl (6.4-8.2)
[2016-11-03 23:58] LABS: URINE BACTERIA RARE /hpf (NONE SEEN)
[2016-11-04 00:01] LABS: ALK PHOS 53 U/L (45-117)
[2016-11-04 03:08] VITALS: BP 99/62; PULSE 81; TEMP 98.2
== END | disposition home or self-care (01) ==
LOC: JER 21:25
PROC: 3E033GC Introduction of Other Therapeutic Substance into Peripheral Vein, Percutaneous Approach (ICD-10-PCS; principal; 2016-11-03)
DX: O99.612 Diseases of the digestive system complicating pregnancy, second trimester (principal); K80.80 Other cholelithiasis without obstruction; Z3A.16 16 weeks gestation of pregnancy
CPT/HCPCS: 36415; 76705-TC; 76801-TC; 80053; 81003; 81015; 82150; 83690; 84702; 85025; 86850; 86900; 86901; 96374; 99282-25

== ENCOUNTER 2016-12-14 21:07 | Emergency (ER) | payer OTHER ==
[2016-12-14 21:15] VITALS: BMI 25.0
[2016-12-14 22:47] LABS: URINE APPEARANCE SLCLOUDY; URINE BILIRUBIN NEGATIVE (NEGATIVE); URINE BLOOD NEGATIVE (NEGATIVE); URINE COLOR YELLOW; URINE GLUCOSE (UA) NEGATIVE (NEGATIVE); URINE KETONE NEGATIVE (NEGATIVE); URINE LEUK ESTERASE NEGATIVE (NEGATIVE); URINE NITRITE NEGATIVE (NEGATIVE); URINE PROTEIN NEGATIVE (NEGATIVE)
[2016-12-14 23:37] VITALS: BP 116/56; PULSE 74; TEMP 99
== END 2016-12-14 23:25 | disposition home or self-care (01) ==
LOC: JER 21:07
DX: O26.891 Other specified pregnancy related conditions, first trimester (principal)
CPT/HCPCS: 76816-TC; 76830-TC; 81003; 99281-25

== ENCOUNTER 2017-01-22 15:03 | Emergency (ER) | payer OTHER ==
[2017-01-22 15:17] VITALS: BP 108/53; PULSE 84; TEMP 98.5; BMI 25.9
--- NOTE | 2017-01-22 16:41 | PDOC ---
History of Present Illness - General History Source: Patient Exam Limitations: Language Barrier - History of Present Illness Initial Comments: 01/22/17 17:53 The patient is a 26 year old female who is 26 weeks , A2 with no other significant PMH who presents to the emergency department with a headache and shortness of breath beginning approximately 1 hour ago. The patient also notes that she has mild nausea upon presentation. She reports making her bed when she suddenly lost consciousness and found herself on the floor about 20 seconds later. She reports feeling disoriented, short of breath, and generally weak upon regaining consciousness and could not rise from from the floor for another 20 seconds. Shortly afterwards, she developed a diffuse headache. The patient notes that she has had similar episodes within the past 4 years, 2x when she was previously and 1x when she was not. The patient also reports bilateral LE pain that has been intermittent for the past month. She also notes difficulty sleeping within the past week due to night sweats and chills. She reports moving in from the [place] about 10 months ago. The patient denies tongue biting. The patient denies chest pain. Denies fever, vomit, diarrhea, and constipation. Denies incontinence, dysuria, frequency, urgency, and hematuria. Allergies: Acetaminophen. Aspirin Past surgical history: Social history: No reported cigarette, alcohol, or drug use. PCP: Dr. Rousseau RAIL ENGINEER: Dr. Smith, Dr. Moreau. <Shyam Jay - Last Filed: 01/22/17 18:10> <Dodie Aguilar - Last Filed: 01/22/17 19:10> - General Chief Complaint: Lightheaded Stated Complaint: DIZZINESS Time Seen by Provider: 01/22/17 16:35 Past History <Shyam Jay - Last Filed: 01/22/17 18:10> - Surgical History Abdominal Surgery: Yes (csection ) - Reproductive History (#): 4 Para: 1 Therapeutic (s) & number: No Spontaneous : 2 - Immunization History Immunization Up to Date: No - Suicide/Smoking/Psychosocial Hx Smoking History: Never smoked Have you smoked in the past 12 months: No Information on smoking cessation initiated: No Hx Alcohol Use: No Drug/Substance Use Hx: No Substance Use Type: None <Dodie Aguilar - Last Filed: 01/22/17 19:10> - Past Medical History Allergies/Adverse Reactions: Allergies Allergy/AdvReac Type Severity Reaction Status Date / Time acetaminophen [From Tylenol] Allergy Verified 01/22/17 15:17 aspirin Allergy Verified 01/22/17 15:17 Home Medications: Ambulatory Orders NK [No Known Home Medication] 10/13/16 Review of Systems - Review of Systems Able to Perform ROS?: Yes Comments:: 01/22/17 17:54 GENERAL/CONSTITUTIONAL: (+) Chills (intermittently at night). No fever. HEAD, EYES, EARS, NOSE AND THROAT: (+) Blurry vision. No ear pain or discharge. No sore throat. CARDIOVASCULAR: (+) Shortness of breath. No chest pain. RESPIRATORY: No cough, wheezing, or hemoptysis. GASTROINTESTINAL: (+) Nausea. No vomiting, diarrhea or constipation. GENITOURINARY: No dysuria, frequency, or change in urination. MUSCULOSKELETAL: No joint or muscle swelling or pain. No neck or back pain. SKIN: No rash NEUROLOGIC: (+) Loss of consciousness. (+) Headache. No vertigo. ENDOCRINE: No increased thirst. No abnormal weight change. HEMATOLOGIC/LYMPHATIC: No anemia, easy bleeding, or history of blood clots. ALLERGIC/IMMUNOLOGIC: No hives or skin allergy. Is the patient limited Japanese proficient: Yes <Shyam Jay - Last Filed: 01/22/17 18:10> *Physical Exam - Vital Signs Last Vital Signs Temp Pulse Resp BP Pulse Ox 98.5 F 84 18 108/53 99 01/22/17 15:13 01/22/17 15:13 01/22/17 15:13 01/22/17 15:13 01/22/17 15:13 - Physical Exam Comments: 01/22/17 17:54 GENERAL: (+) Protuberant belly. Awake, alert, and fully oriented, in no acute distress HEAD: No signs of trauma EYES: PERRLA, EOMI, sclera anicteric, conjunctiva clear ENT: Auricles normal inspection, hearing grossly normal, nares patent, oropharynx clear without exudates. Moist mucosa NECK: Normal ROM, supple, no lymphadenopathy, JVD, or masses LUNGS: Breath sounds equal, clear to auscultation bilaterally. No wheezes, and no crackles HEART: Regular rate and rhythm, normal S1 and S2, no murmurs, rubs or gallops ABDOMEN: Soft, nontender, normoactive bowel sounds. No guarding, no rebound. No masses EXTREMITIES: Normal range of motion, no edema. No clubbing or cyanosis. No cords, erythema, or tenderness NEUROLOGICAL: Cranial nerves II through XII grossly intact. Normal speech, normal gait SKIN: Warm, Dry, normal turgor, no rashes or lesions noted. <Shyam Jay - Last Filed: 01/22/17 18:10> - Vital Signs Last Vital Signs Temp Pulse Resp BP Pulse Ox 98.5 F 84 18 108/53 99 01/22/17 15:13 01/22/17 15:13 01/22/17 15:13 01/22/17 15:13 01/22/17 15:13 <Dodie Aguilar - Last Filed: 01/22/17 19:10> Heart Score/ECG Review #1 01/22/17 18:06 Vent. rate 70 bpm Normal sinus rhythm Low voltage QRS Borderline ECG <Shyam Jay - Last Filed: 01/22/17 18:10> ED Treatment Course - LABORATORY CBC & Chemistry Diagram: 01/22/17 16:51 01/22/17 16:51 - ADDITIONAL ORDERS Additional order review: Laboratory Results 01/22/17 16:51 Sodium 138 Potassium 4.2 Chloride 105 Carbon Dioxide 26 Anion Gap 7 L BUN 7 Creatinine 0.4 L Creat Clearance w eGFR > 60 Random Glucose 67 L Calcium 8.2 L Total Bilirubin 0.5 D AST 14 L D ALT 15 D Alkaline Phosphatase 69 D Total Protein 6.4 Albumin 2.8 L 01/22/17 16:51 RBC 3.45 L MCV 93.6 MCHC 33.4 RDW 13.8 MPV 7.1 L Neutrophils % 74.1 Lymphocytes % 18.0 Monocytes % 7.5 Eosinophils % 0.1 Basophils % 0.3 - Medications Given in the ED: ED Medications Discontinued Medications Generic Name Dose Route Start Last Admin Trade Name Freq PRN Reason Stop Dose Admin Sodium Chloride 1,000 mls @ 1,000 mls/hr 01/22/17 16:43 01/22/17 17:06 Normal Saline - IV 01/22/17 17:42 1,000 mls/hr ASDIR STA Administration <Shyam Jay - Last Filed: 01/22/17 18:10> - LABORATORY CBC & Chemistry Diagram: 01/22/17 16:51 01/22/17 16:51 <Dodie Aguilar - Last Filed: 01/22/17 19:10> Medical Decision Making - Medical Decision Making 01/22/17 17:15 26 yo female who states she is 26 weeks and had a syncopal episode after bending over to look under something. Currently has c/o fatigue this week HPI she has had 4 prior fainting episodes in her past ,usually while she is -DENIES fever,chills,nausea,vomiting.chest pain. She has no vaginal bleeding or pelvic cramping PMH A2 -last saw high pressure kettle operator. last Sunday at [facility] clinic VS 100 % on room air, pulse=67 ekg nsr @ 70 bpm,low voltage IMP vasovagel episode reviweing labs shows hypoglycemia @ 67 and pt ate dinner Using [place] tranlator I explaiained the lab results -the pt has another high pressure kettle operator appt in 2 weeks -the pt said that last week shhe had a fasing glucose test done. Does not know the results yet. 01/22/17 19:07 I offered to send her for monitoring but she had no pelvic discomfort,no bleeding and declined. She wanted to go home 01/22/17 19:09 <Dodie Aguilar - Last Filed: 01/22/17 19:10> *DC/Admit/Observation/Transfer - Attestations Scribe Attestion: 01/22/17 17:54 Documentation prepared by Shyam Jay, acting as forensic medical examiner for Dodie Aguilar MD. <Shyam Jay - Last Filed: 01/22/17 18:10> <Dodie Aguilar - Last Filed: 01/22/17 19:10> Diagnosis at time of Disposition: Dizziness - Discharge Dispostion Disposition: HOME Condition at time of disposition: Stable - Referrals Referrals: Herson Rousseau MD [Primary Care Provider] - - Patient Instructions Printed Discharge Instructions: DI for Syncope in Adults (Fainting) Additional Instructions: please keep your appointment with your high pressure kettle operator Print Language: BRITISH
[2017-01-22] MEDS ORDERED: SODIUM CHLORIDE 1,000 ML IV STA (16:43)
[2017-01-22 17:05] LABS: BASOPHIL 0.3 % (0-2.0); EOSINOPHIL 0.1 % (0-4.5); MCH 31.2 pg (25.7-33.7); MCHC 33.4 g/dl (32.0-36.0); MEAN CELL VOLUME 93.6 fl (80-96); MEAN PLT VOLUME 7.1 fl (7.5-11.1); NEUTROPHILS 74.1 % (42.8-82.8); PLATELET COUNT 310 K/MM3 (134-434); RDW 13.8 % (11.6-15.6); WHITE BLOOD COUNT 7.8 K/mm3 (4.0-10.0)
[2017-01-22 17:35] LABS: ALBUMIN 2.8 g/dl (3.4-5.0); ALK PHOS 69 U/L (45-117); ANION GAP 7 (8-16); BILIRUBIN,TOTAL 0.5 mg/dL (0.2-1.0); CALCIUM 8.2 mg/dL (8.5-10.1); CO2 26 mmol/L (21-32); CREATININE 0.4 mg/dL (0.55-1.02); GLUCOSE,RANDOM 67 mg/dL (74-106); SGOT/AST 14 U/L (15-37); SGPT/ALT 15 U/L (12-78); TOT PROT 6.4 g/dl (6.4-8.2)
[2017-01-22 18:42] LABS: URINE APPEARANCE CLOUDY; URINE BILIRUBIN NEGATIVE (NEGATIVE); URINE BLOOD NEGATIVE (NEGATIVE); URINE COLOR AMBER; URINE GLUCOSE (UA) NEGATIVE (NEGATIVE); URINE KETONE 1+ (NEGATIVE); URINE NITRITE NEGATIVE (NEGATIVE); URINE PROTEIN NEGATIVE (NEGATIVE); URINE UROBILINOGEN NEGATIVE mg/dL (0.2-1.0)
[2017-01-22 22:38] LABS: URINE LEUK ESTERASE Negative (NEGATIVE)
--- NOTE | 2017-01-23 22:28 | EKG ---
Test Reason : Blood Pressure : / mmHG Vent. Rate : 070 BPM Atrial Rate : 070 BPM P-R Int : 162 ms QRS Dur : 076 ms QT Int : 412 ms P-R-T Axes : 049 015 021 degrees QTc Int : 444 ms NORMAL SINUS RHYTHM RSR' OR QR PATTERN IN V1 SUGGESTS RIGHT VENTRICULAR CONDUCTION DELAY LOW VOLTAGE QRS BORDERLINE ECG NO PREVIOUS ECGS AVAILABLE REPEAT EKG IF CLINICALLY INDICATED Confirmed by SKY WALKER MD ([id number]) on 01/23/2017 10:28:18 PM Referred By: Confirmed By:SKY WALKER MD
== END 2017-01-22 19:10 | disposition home or self-care (01) ==
LOC: JER 15:03
PROC: 3E0337Z Introduction of Electrolytic and Water Balance Substance into Peripheral Vein, Percutaneous Approach (ICD-10-PCS; principal; 2017-01-22)
DX: O26.892 Other specified pregnancy related conditions, second trimester (principal); Z3A.26 26 weeks gestation of pregnancy; R42 Dizziness and giddiness
CPT/HCPCS: 36415; 80053; 81003; 85025; 93005; 93010; 99283-25

== ENCOUNTER 2017-04-17 23:45 | Inpatient (IN) | payer OTHER ==
[2017-04-18] MEDS ORDERED: CITRIC ACID/SODIUM CITRATE 30 ML UNIT-DOSE CUP PO ONE (00:41)
[2017-04-18] MEDS ORDERED: ELECTROLYTE-148 SOLN 500 ML IV ONE (00:41)
[2017-04-18] MEDS ORDERED: ELECTROLYTE-148 SOLN 1,000 ML IV SCH (00:45)
--- NOTE | 2017-04-18 00:57 | HP ---
Past Medical History - Primary Care Physician PCP:: Romina Fisher - Admission Chief Complaint: 26 yrs , 39.4/7 weeks , previous c/section type unknown c/o onset LP since 10.00Pm requests for Repeat c/section History of Present Illness: PNC at , [facility] , wt gain 28 lbs work Up : A pos, Hbsag neg, , Rubella immune, Rpr nr, Hiv neg , Sickle neg, Gc/ct neg, Gbs neg Quantiferon neg , 1 hr Gtt 87 . pt was non compliant with pnv & po iron anemia was noted, rfer to garnett machine operator helper , anemia work up was done , serum, folic acid ( 13.7. B12 235, Ferritin 7, iron 45, Tibc 418, iron saturation 11% Iron deff anemia diagnosed. she received IV Iron Infusion twice in garnett machine operator helper's office Nt screen neg History Source: Patient, Medical Record Limitations to Obtaining History: No Limitations - Past Medical History MACHINE PRECISION ETCHER: Yes: Syncope (seen i at [place] [facility]. ekg done .). No: CVA, Migraine Cardiovascular: Yes: Other (pt ws evaluated by cardilologist for syncopal attack ) Pulmonary: No: Asthma Gastrointestinal: Yes: Other (h/o vomiting & nausea during whole ) Renal/: No: UTI ...: 4 ...Para: 1 ...Term: 1 (12/06/2012 primary c/section, type unknown , boy 8'15" ) ...Spon : 2 (2014, 2015 ) ...LMP: 05/25/16 (mistaken dates ) ...EDC by Dates: 03/03/17 ...EDC by Sono: 04/21/17 (39.4/7 weeks ) Heme/Onc: Yes: Anemia (iron deff. h/o IV Iron infusion in Feb & Mar in Advertising Operations Coordinator's office in [place]). No: Sickle Cell Trait Infectious Disease: No: AIDS, HIV, STD's Psych: No: Addictions, Anxiety, Bipolar, Depression, Panic, Schizophrenia Endocrine: No: Diabetes Mellitus, Hyperthyroidism, Hypothyroidism - Past Surgical History Past Surgical History: No: ( in ) Hx Myomectomy: No Hx Transabdominal Cerclage: No - Smoking History Smoking history: Never smoked Have you smoked in the past 12 months: No - Alcohol/Substance Use Hx Alcohol Use: No History of Substance Use: reports: None Home Medications - Allergies Allergies/Adverse Reactions: Allergies Allergy/AdvReac Type Severity Reaction Status Date / Time acetaminophen [From Tylenol] Allergy Intermediate Rash Verified 04/18/17 00:42 aspirin Allergy Intermediate Rash Verified 04/18/17 00:42 - Home Medications Home Medications: Ambulatory Orders NK [No Known Home Medication] 04/18/17 Physical Exam - Maternity Vital Signs: Selected Entries 04/17/17 23:45 Temperature 97.6 F Pulse Rate 97 H Respiratory 20 Rate Blood Pressure 117/72 Weight 164 lb Constitutional: Yes: Severe Distress Eyes: Yes: WNL HENT: Yes: WNL, Normocephalic Neck: Yes: WNL Cardiovascular: Yes: WNL, Regular Rate and Rhythm Lungs: Clear to auscultation Breast(s): Yes: WNL, Other. No: Mass - Abdominal Exam/OB Fundal Height: 40 Number of Fetuses: Single Presentation: Vertex Contractions: Yes Regularity: Irregular (6-8 min) Intensity: Mod/Strong Monitor Mode: External Heart Rate (range): 145 Heart Rate Location: [facility] Category: I Accelerations: Uniform Decelerations: None - Vaginal Exam/OB Vaginal Bleediing: No Speculum Exam: No Dilatation (cm): 1 Effacement (%): 70 Amniotic Membrane Status: Intact Presentation: Vertex/Position Station: -3 - Physical Exam Musculoskeletal: Yes: WNL Extremities: Yes: WNL. No: Calf Tenderness Edema: Yes Edema: LLE: 1+, RLE: 1+ Integumentary: Yes: Incision (pfannensteil scar , keloid), Tattoos Deep Tendon Reflex Grade: Normal +2 ...Motor Strength: WNL Psychiatric: Yes: WNL, Alert, Oriented - Labs Lab Results: Laboratory Tests 11/03/16 01/29/17 04/17/17 22:40 10:00 12:20 WBC 7.0 RBC 3.83 Hgb 11.7 Hct 35.7 MCV 93.2 MCH 30.6 MCHC 32.9 Plt Count 271 Neutrophils % 73.0 Lymphocytes % 19.5 Monocytes % 6.8 Eosinophils % 0.2 D Basophils % 0.5 PT with INR INR PTT (Actin FS) Sodium Potassium Chloride Carbon Dioxide BUN Creatinine Random Glucose Calcium AST ALT Albumin Total Amylase 123 H Urine Protein Negative RPR Titer 04/17/17 04/17/17 04/17/17 12:20 12:20 12:20 WBC RBC Hgb Hct MCV MCH MCHC Plt Count Neutrophils % Lymphocytes % Monocytes % Eosinophils % Basophils % PT with INR 9.50 L INR 0.84 L PTT (Actin FS) 27.8 Sodium 137 Potassium 4.1 Chloride 105 Carbon Dioxide 24 BUN 11 D Creatinine 0.5 L D Random Glucose 84 D Calcium 7.9 L AST 11 L D ALT 13 Albumin 2.7 L Total Amylase Urine Protein RPR Titer Nonreactive Problem List - Problems (1) with 39 completed weeks gestation Code(s): Z3A.39 - 39 WEEKS GESTATION OF (2) Previous section Code(s): Z98.891 - HISTORY OF UTERINE SCAR FROM PREVIOUS SURGERY (3) Labor established Code(s): KRY5060 - (4) Anemia Code(s): D64.9 - ANEMIA, UNSPECIFIED Qualifiers: Anemia type: iron deficiency Iron deficiency anemia type: inadequate dietary iron intake Qualified Code(s): D50.8 - Other iron deficiency anemias Assessment/Plan 26 yrs , previous c/section , 39.4/7 weeks in labor , gbs neg, iron deff anemia s/o iron infusion Plan repeat lftc/s
[2017-04-18 01:01] VITALS: BMI 27.3
[2017-04-18] MEDS ORDERED: ceFAZolin SODIUM 1 GM VIAL ONE (01:03)
[2017-04-18] MEDS ORDERED: morphine SULFATE/Preservative Free 0.5 MG/ML (1cc Syringe) ONE (01:03)
[2017-04-18] MEDS ORDERED: morphine SULFATE/Preservative Free 0.5 MG/ML (1cc Syringe) SPIN ONE (01:10)
[2017-04-18] MEDS ORDERED: ONDANSETRON 4 MG/2 ML VIAL IVPUSH PRN (01:14)
[2017-04-18] MEDS ORDERED: OXYTOCIN 10 UNITS/ML VIAL ONE (01:29)
[2017-04-18 01:59] LABS: VENOUS PC02 43.6 mmHg (38-52); VENOUS PH 7.37 (7.32-7.42); VENOUS PO2 39.9 mmHg (28-48)
[2017-04-18] MEDS ORDERED: METHYLERGONOVINE MALEATE 0.2 MG/1 ML AMP IM PRN (02:20)
[2017-04-18] MEDS ORDERED: OXYTOCIN 20 UNITS in 0.9% NS 20 UNIT/1,000 ML INFUS.BAG IV ONE (02:22)
[2017-04-18] MEDS: OXYTOCIN 20 UNITS in 0.9% NS 20 UNIT/1,000 ML INFUS.BAG IV SCH ×2 (02:30→12:11)
[2017-04-18] MEDS ORDERED: IBUPROFEN 800 MG/8 ML IJ IVPB ONE (02:35)
--- NOTE | 2017-04-18 02:37 | PN ---
Delivery - Delivery Section: Repeat, Low Flap Transverse (39.4 weeks , previous c/section in labor) Type of Anesthesia: Spinal Episiotomy/Laceration: None EBL (cc): 800 (200 ml rodriguez out put , robby color ) Delivery, Single - Stages of Labor Date 1st Stage Initiatied: 04/17/17 Time 1st Stage Initiated: 15:00 Date of Delivery: 04/18/17 Time of Delivery: 01:29 Time Placenta Delivered: :30 Placenta: Yes: Manual Removal, Uterine Exploration - Condition of Infant Mail Opener/Coronary Care Unit Nurse Present: Yes Name: Lisa Brandt Infant Gender: Female Weight: 7 lb 7 oz Position: Left, OA Total Hours ROM (Hrs/Mins): 2MIN - 1 Minute Total Score: 9 5 Minutes Total Score: 9 - Feeding Plan Initial Plan: Elected not to breastfeed exclusively throughout hospitalization Remarks - Remarks Remarks: 26 yrs 39.4/7 weeks , previous c/section type unknown , in labor , GBS neg h/o pnc at 2, [facility] h/o iron deff anemia, , h/o iron infusion Intraop course unevntful Intraop Iv ancef 1 gm ivpb given
--- NOTE | 2017-04-18 02:43 | OP ---
Operative Note - Note: Operative Date: 04/18/17 Pre-Operative Diagnosis: 39.4/7 weeks, previous c/s type unknown in labor Operation: Repeat LFTC/section Findings: 1.29 AM ,Baby Girl, 9/9 , Wt 7'7" , MARTY position, itight loop cord around neckx1 & leg . cord clamped & cut before delivery of shoulder both tubes & ovaries normal large uterus size Dr Brandt present in OR Surgeon: Romina Fisher Skydiving Instructor: Ace Branch Anesthesiologist/FUR FLOOR WORKER: Leland Campa Anesthesia: Spinal Specimens Removed: cord segment for blood gs. cord blood. placenta Estimated Blood Loss (mls): 800 Drains, Volume Out (mls): 200 (rodriguez output, robby color ) Fluid Volume Replaced (mls): 1,000 (iv ancef 1 gm prior to incision ) Operative Report Dictated: Yes
[2017-04-18] MEDS: IBUPROFEN 800 MG/8 ML IJ IVPB PRN ×3 (02:53→18:12)
--- NOTE | 2017-04-18 06:49 | OP ---
DATE OF OPERATION: 04/18/2017 PREOPERATIVE DIAGNOSIS: 39-4/7 weeks, previous section (type unknown) , in labor. Request for repeat section. PROCEDURE PERFORMED: Repeat qeo-[id number] section. SURGEON: Romina Fisher MD PROFILING MACHINE OPERATOR: CARRIE Gutiérrez ANESTHESIOLOGIST: Leland Campa M.D. NEONATALOGIST: Lisa Brandt M.D. ANESTHESIA: Spinal. INDICATIONS: This is a 26-year-old 4, para 1-0-2-1, at 37-4/7 weeks. She had onset of labor since 10 p.m., and she was 1-cm dilated, 70%, having irregular contractions, between 6 to 7 minutes. DESCRIPTION OF PROCEDURE: The patient's abdomen was shaved and prepped. A Tran catheter was placed. She was taken to the OR. Spinal anesthesia was given. She was placed in the supine position. The abdomen was painted and draped in the usual manner. A Pfannenstiel incision was made around the previous scar, and the previous scar was excised. Then the subcutaneous tissue and anterior rectus sheath were incised transversely. Bleeding points were clamped and cauterized. The rectus muscle was from the rectus sheath. The parietal peritoneum was opened vertically. The lower flap by the peritoneum was incised transversely. The bladder was pushed down. The lower uterine segment was thin and it was incised transversely. The amniotic fluid was clear. The baby was delivered from MARTY position at 1: 29 a.m. There was a tight cord around the neck. The cord was clamped and cut before delivery of the shoulders, MARTY position. There was also cord wrapped around the leg twice. The baby was handed over to the armature winder automotive, Dr. Lisa Brandt. Apgars were 9 and 9. Weight was 7 pounds 7 ounces. Cord segment was sent for cord blood gas, and cord blood was collected. The placenta was removed completely with the membranes. The uterine incision was cleaned. Then closure of the uterine incision was done in 2 layers. The 1st layer was a continuous locking with Biosyn 0 suture. The 2nd layer was a continuous intermittent locking with Biosyn 0 suture. Hemostasis was verified. The bladder peritoneum was closed with Biosyn 0 suture. Both tubes and ovaries were normal. Irrigation was done. Sponge, instrument and needle counts were correct. Then closure of the abdomen was done. The parietal peritoneum was closed with Vicryl 0 suture, continuous sutures were taken. Interrupted sutures were taken in the muscle layer with Vicryl 0 suture running underneath the rectus sheath hemostasis was verified. Then the anterior rectus sheath was closed with Vicryl 0; continuous sutures were taken. Hemostasis was checked in the subcutaneous tissue, and subcutaneous tissue interrupted sutures were taken. The skin was approximated with carmen. Estimated blood loss was 800 mL. Intraoperative urine output was 200 mL; it was robby colored. She received 1 g of IV Ancef prior to the incision. Total infusion was given 1000 mL. Blood clots were removed from the vagina. The patient tolerated the procedure well. She was transferred to the recovery room in stable condition. Gallo [id number] MTDD
[2017-04-18] MEDS: FERROUS SO4 325 MG TABLET (FP) PO SCH ×2 (08:44→17:32)
[2017-04-18] MEDS: CEFAZOLIN 1 GM PUSH 1 GM/10 ML DISP.SYRIN IVPUSH SCH ×2 (08:44→16:29)
--- NOTE | 2017-04-18 12:42 | PN ---
Progress Note (short form) - Note Progress Note: Anesthesiology Post-op POD#1 s/p C/S under spinal anesthesia. Pt. feels well, denies pain or headache. She only c/o some itching and has Benadryl ordered PRN. Able to move all extremities. VSS.
[2017-04-18] MEDS ORDERED: oxyCODONE HCL 5 MG TABLET PO PRN (16:00)
[2017-04-18] MEDS: ENOXAPARIN NA (PORCINE) 40 MG/0.4 ML DISP.SYRIN SQ SCH (21:00)
[2017-04-19] MEDS: CEFAZOLIN 1 GM PUSH 1 GM/10 ML DISP.SYRIN IVPUSH SCH (00:46)
[2017-04-19] MEDS: SIMETHICONE 80 MG TAB.CHEW (FP) PO PRN ×5 (00:49→21:31)
[2017-04-19] MEDS: oxyCODONE HCL 5 MG TABLET PO PRN ×5 (00:49→21:34)
[2017-04-19] MEDS: IBUPROFEN 600 MG TABLET (FP) PO PRN ×5 (00:49→21:34)
[2017-04-19] MEDS ORDERED: BISACODYL 10 MG SUPP.RECT RC PRN (02:20)
[2017-04-19] MEDS: OXYTOCIN 20 UNITS in 0.9% NS 20 UNIT/1,000 ML INFUS.BAG IV SCH (02:30)
[2017-04-19 08:46] LABS: BASO % 0.6 % (0-2.0); HEMATOCRIT 29.7 % (32.4-45.2); HEMOGLOBIN 9.8 GM/dL (10.7-15.3); LYMPH % 21.1 % (8-40); MCH 30.6 pg (25.7-33.7); MCHC 32.8 g/dl (32.0-36.0); MEAN CELL VOLUME 93.1 fl (80-96); MEAN PLT VOLUME 7.8 fl (7.5-11.1); MONO % 5.8 % (3.8-10.2); NEUT % 71.5 % (42.8-82.8); PLATELET COUNT 213 K/MM3 (134-434); RBC 3.19 M/mm3 (3.60-5.2); RDW 14.2 % (11.6-15.6); WHITE BLOOD COUNT 7.8 K/mm3 (4.0-10.0)
[2017-04-19] MEDS: FERROUS SO4 325 MG TABLET (FP) PO SCH ×2 (09:27→17:31)
[2017-04-19] MEDS: ENOXAPARIN NA (PORCINE) 40 MG/0.4 ML DISP.SYRIN SQ SCH (09:27)
[2017-04-19] MEDS: PRENATAL VITAMINS W/ FOLIC ACID TABLET (FP) PO SCH (09:27)
--- NOTE | 2017-04-19 18:43 | PN ---
Progress Note (short form) - Note Progress Note: pod 1 doing well, has mild cramps, no excess vaginal bleeding CBC, BMP 04/19/17 08:00 Last Vital Signs Temp Pulse Resp BP Pulse Ox 97.8 F 63 20 112/67 100 04/19/17 08:33 04/19/17 08:33 04/19/17 08:33 04/19/17 08:33 04/18/17 03:13 abdomen soft, no distension, no cva incision dry, clean no calf tenderness plan ambulate , advance diet
[2017-04-19] MEDS: SENNOSIDES/DOCUSATE COMBO (SENNA PLUS) TABLET (UD) PO PRN (21:35)
[2017-04-20] MEDS: SIMETHICONE 80 MG TAB.CHEW (FP) PO PRN ×3 (06:16→22:45)
[2017-04-20] MEDS: oxyCODONE HCL 5 MG TABLET PO PRN ×3 (06:17→22:48)
[2017-04-20] MEDS: IBUPROFEN 600 MG TABLET (FP) PO PRN ×3 (06:18→22:48)
--- NOTE | 2017-04-20 08:10 | PN ---
Progress Note (short form) - Note Progress Note: pod 2 doing well, no c/o CBC, BMP 04/19/17 08:00 Last Vital Signs Temp Pulse Resp BP Pulse Ox 97.9 F 66 20 112/61 100 04/19/17 21:49 04/19/17 21:49 04/19/17 21:49 04/19/17 21:49 04/18/17 03:13 abdomen soft, no distension, no cva incision dry, clean no calf tenderness no excess vaginal bleeding plan ambulate, cbc in am
[2017-04-20] MEDS: ENOXAPARIN NA (PORCINE) 40 MG/0.4 ML DISP.SYRIN SQ SCH (09:27)
[2017-04-20] MEDS: PRENATAL VITAMINS W/ FOLIC ACID TABLET (FP) PO SCH (09:27)
[2017-04-20] MEDS: FERROUS SO4 325 MG TABLET (FP) PO SCH ×2 (09:27→17:42)
--- NOTE | 2017-04-20 12:58 | PATH ---
Surgical Pathology Report Patient Name: [facility]. Rec. #: [id number] /Age/Gender: 1990 (Age: 26) / F Account: [id number] Location: [facility] OBS/CLINICAL PRACTITIONER Taken: 04/18/2017 Received: 04/18/2017 Reported: 04/20/2017 Physicians: Romina Fisher M.D. Specimen(s) Received PLACENTA Clinical History repeat , iron deficiency Final Diagnosis PLACENTA, DELIVERY: FOCALLY DISRUPTED THIRD TRIMESTER PLACENTA WITH THREE VESSEL UMBILICAL CORD AND UNREMARKABLE PLACENTAL MEMBRANES. Electronically Signed Hansel Scott M.D. Gross Description The specimen is received fresh labeled placenta and is a 452 gram, 14.0 x 12.0 x 3.3 cm. placenta with attached membranes and umbilical cord. The attached membranes are watkins, translucent with focal opacities and insert marginally. The umbilical cord measures 10 cm. in length and averages 0.8 cm. in diameter. The cord inserts eccentrically, 2 cm. to the nearest margin. No true knots or strictures are identified. Cut surface of the umbilical cord reveals 3 vessels. The surface is berman-blue with minimal fibrin deposition and appropriate caliber vessels. The maternal surface is red-brown with focal defects. Sectioning reveals red-brown, spongy parenchyma. No lesions are identified. Glove Boarder sections are submitted in three cassettes as follows: 1- membrane rolls and umbilical cord; 2-3- full thickness sections of placenta. /04/19/2017 saudi04/19/2017
[2017-04-20] MEDS: SENNOSIDES/DOCUSATE COMBO (SENNA PLUS) TABLET (UD) PO PRN (22:49)
[2017-04-21] MEDS: SIMETHICONE 80 MG TAB.CHEW (FP) PO PRN ×2 (05:49→11:10)
[2017-04-21] MEDS: oxyCODONE HCL 5 MG TABLET PO PRN ×2 (05:53→11:11)
[2017-04-21] MEDS: IBUPROFEN 600 MG TABLET (FP) PO PRN ×2 (05:54→11:10)
[2017-04-21 08:07] LABS: BASO % 0.5 % (0-2.0); EOS % 1.1 % (0-4.5); HEMATOCRIT 29.4 % (32.4-45.2); HEMOGLOBIN 9.7 GM/dL (10.7-15.3); LYMPH % 26.3 % (8-40); MCH 30.7 pg (25.7-33.7); MCHC 32.9 g/dl (32.0-36.0); MEAN CELL VOLUME 93.4 fl (80-96); MEAN PLT VOLUME 7.6 fl (7.5-11.1); MONO % 5.8 % (3.8-10.2); NEUT % 66.3 % (42.8-82.8); PLATELET COUNT 265 K/MM3 (134-434); RBC 3.14 M/mm3 (3.60-5.2); RDW 14.2 % (11.6-15.6); WHITE BLOOD COUNT 6.8 K/mm3 (4.0-10.0)
[2017-04-21] MEDS: PRENATAL VITAMINS W/ FOLIC ACID TABLET (FP) PO SCH (09:28)
[2017-04-21] MEDS: ENOXAPARIN NA (PORCINE) 40 MG/0.4 ML DISP.SYRIN SQ SCH (09:28)
--- NOTE | 2017-04-21 09:28 | PN ---
Post Progress Note Post Day: 3 Type of Delivery: Repeat C/S Vital Signs: Vital Signs Temperature 97.6 F 04/20/17 22:00 Pulse Rate 62 04/20/17 22:00 Respiratory Rate 18 04/20/17 22:00 Blood Pressure 124/79 04/20/17 22:00 O2 Sat by Pulse Oximetry (%) 100 04/18/17 03:13 Breast Exam: Yes: Soft Uterus: Yes: Fundus Firm Incision: Yes: [place] intact Abdomen/GI: Yes: Abdomen soft Lochia: Yes: Rubra Lochia, amount: Small Extremities: Yes: Calves non-tender Perineum: Yes: Intact Activity: Ambulating - Labs Labs: CBC WBC 6.8 K/mm3 (4.0-10.0) 04/21/17 06:20 RBC 3.14 M/mm3 (3.60-5.2) L 04/21/17 06:20 Hgb 9.7 GM/dL (10.7-15.3) L 04/21/17 06:20 Hct 29.4 % (32.4-45.2) L 04/21/17 06:20 MCV 93.4 fl (80-96) 04/21/17 06:20 MCH 30.7 pg (25.7-33.7) 04/21/17 06:20 MCHC 32.9 g/dl (32.0-36.0) 04/21/17 06:20 RDW 14.2 % (11.6-15.6) 04/21/17 06:20 Plt Count 265 K/MM3 (134-434) D 04/21/17 06:20 MPV 7.6 fl (7.5-11.1) 04/21/17 06:20 Neutrophils % 66.3 % (42.8-82.8) 04/21/17 06:20 Lymphocytes % 26.3 % (8-40) D 04/21/17 06:20 Monocytes % 5.8 % (3.8-10.2) 04/21/17 06:20 Eosinophils % 1.1 % (0-4.5) 04/21/17 06:20 Basophils % 0.5 % (0-2.0) 04/21/17 06:20 Assessment/Plan oob reg diet continue care pain control
[2017-04-21] MEDS: FERROUS SO4 325 MG TABLET (FP) PO SCH (09:29)
[2017-04-21 10:06] VITALS: BP 114/63; PULSE 57; TEMP 97.9
== END 2017-04-21 13:15 | disposition home or self-care (01) | DRG 540 ==
LOC: JLDR 23:45 → J3W 04-18 04:00
PROVIDERS: ADMIT Obstetrics & Gynecology; ATTEND Obstetrics & Gynecology
PROC: 10D00Z1 Extraction of Products of Conception, Low, Open Approach (ICD-10-PCS; principal; 2017-04-18)
DX: O34.211 Maternal care for low transverse scar from previous cesarean delivery (principal); O69.1XX0 Labor and delivery complicated by cord around neck, with compression, not applicable or unspecified; L91.0 Hypertrophic scar; O99.02 Anemia complicating childbirth; D50.9 Iron deficiency anemia, unspecified; Z3A.39 39 weeks gestation of pregnancy; Z37.0 Single live birth
CPT/HCPCS: 36415; 82803; 85025; 88307-TC

== ENCOUNTER 2017-08-22 14:40 | Emergency (ER) | payer OTHER ==
[2017-08-22 15:03] VITALS: BP 135/79; PULSE 54; TEMP 98.5; BMI 24.9
--- NOTE | 2017-08-22 15:32 | PDOC ---
History of Present Illness - General Chief Complaint: Vision Loss,Bilateral Stated Complaint: EYE PAIN Time Seen by Provider: 08/22/17 15:32 - History of Present Illness Initial Comments: 08/22/17 15:48 Ms. Abilio Ellison is a 27 yo female w/ pmh of anemia and heavy vaginal bleeding who presents complaining of a 1 day history of binocular vision problems. She reports she has had this in the past but never as bad. She additionally reports midline chest pain and that she has headache at the back of her head radiating to her shoulders. She presents as her symptoms have persisted since last night. She is also currently sensitive to bright lights. The patient denies shortness of breath and dizziness. Denies fever, chills, nausea, vomit, diarrhea and constipation. Denies dysuria, frequency, urgency and hematuria. Allergies: Tylenol, Aspirin Past History - Past Medical History Allergies/Adverse Reactions: Allergies Allergy/AdvReac Type Severity Reaction Status Date / Time acetaminophen [From Tylenol] Allergy Intermediate Rash Verified 08/22/17 14:57 aspirin Allergy Intermediate Rash Verified 08/22/17 14:57 Home Medications: Ambulatory Orders NK [No Known Home Medication] 08/22/17 Asthma: No Cancer: No Cardiac Disorders: No Diabetes: No HTN: No Seizures: No Thyroid Disease: No - Surgical History Abdominal Surgery: Yes (csection ) - Reproductive History (#): 4 Para: 1 Therapeutic (s) & number: No Spontaneous : 2 - Immunization History Immunization Up to Date: No - Suicide/Smoking/Psychosocial Hx Smoking History: Never smoked Have you smoked in the past 12 months: No Hx Alcohol Use: No Drug/Substance Use Hx: No Substance Use Type: None Hx Substance Use Treatment: No Review of Systems - Review of Systems Comments:: 08/22/17 17:22 GENERAL/CONSTITUTIONAL: No fever or chills. No weakness. HEAD, EYES, EARS, NOSE AND THROAT: +Bilateral decreased vision. No ear pain or discharge. No sore throat. CARDIOVASCULAR: +Midline sternal chest pain. Noshortness of breath RESPIRATORY: No cough, wheezing, or hemoptysis. GASTROINTESTINAL: No nausea, vomiting, diarrhea or constipation. GENITOURINARY: No dysuria, frequency, or change in urination. MUSCULOSKELETAL: +Neck/shoulder pain as described. No joint or muscle swelling or pain. SKIN: No rash NEUROLOGIC: +Posterior headache. No vertigo, loss of consciousness, or change in strength/sensation. ENDOCRINE: No increased thirst. No abnormal weight change HEMATOLOGIC/LYMPHATIC: No anemia, easy bleeding, or history of blood clots. ALLERGIC/IMMUNOLOGIC: No hives or skin allergy. *Physical Exam - Vital Signs Last Vital Signs Temp Pulse Resp BP Pulse Ox 98.5 F 54 L 19 135/79 100 08/22/17 14:57 08/22/17 14:57 08/22/17 14:57 08/22/17 14:57 08/22/17 14:57 - Physical Exam Comments: 08/22/17 17:23 GENERAL: Awake, alert, and fully oriented, in no acute distress HEAD: No signs of trauma, normocephalic, atraumatic EYES: +Patient vision poor bilaterally. Patient reports she sees 4 fingers when 2 are held 1 foot from face with one eye covered bilaterally. PERRLA, EOMI, sclera anicteric, conjunctiva clear ENT: Auricles normal inspection, hearing grossly normal, nares patent, oropharynx clear without exudates. Moist mucosa NECK: Normal ROM, supple, no lymphadenopathy, JVD, or masses LUNGS: +Reproducible midline chest pain with palpation. No distress, speaks full sentences, clear to auscultation bilaterally HEART: Regular rate and rhythm, normal S1 and S2, no murmurs, rubs or gallops, peripheral pulses normal and equal bilaterally. ABDOMEN: Soft, nontender, normoactive bowel sounds. No guarding, no rebound. No masses EXTREMITIES: Normal inspection, Normal range of motion, no edema. No clubbing or cyanosis. NEUROLOGICAL: Cranial nerves II through XII grossly intact. Normal speech, normal gait, no focal sensorimotor deficits SKIN: Warm, Dry, normal turgor, no rashes or lesions noted. ED Treatment Course - LABORATORY CBC & Chemistry Diagram: 08/22/17 16:15 08/22/17 16:15 Medical Decision Making - Medical Decision Making 08/22/17 17:24 Ms. Abilio Ellison is a 27 yo female w/ pmh as described who presents w/ symptoms concerning for acute migraine. 08/22/17 18:51 Ms. Knox reporting generalized resolution of symptoms with increase in vision following migraine treatment. Pending Head CT. 08/22/17 19:12 Patient signed out to Dr. Chance for further evaluation. *DC/Admit/Observation/Transfer Diagnosis at time of Disposition: Vision loss, bilateral Headache Qualifiers: Headache type: unspecified Headache chronicity pattern: unspecified pattern Intractability: not intractable Qualified Code(s): R51 - Headache - Discharge Dispostion Disposition: HOME Condition at time of disposition: Improved - Referrals Referrals: Herson Rousseau MD [Primary Care Provider] - Francesco Nava MD [Staff Physician] - Mitul Drake MD [Staff Physician] - - Patient Instructions Printed Discharge Instructions: DI for Headache Additional Instructions: 1) As discussed, call Dr. Nava's office for a follow up appointment with the neurologist within 1 week for your headaches. 2) As discussed call Dr. Drake's office for a follow up appointment with an vice president talent management within 1 week for your vision. 3) Return to the emergency department immediately if you have an new, worsening , recurrent, or concerning symptoms such as loss of vision. - Post Discharge Activity
[2017-08-22] MEDS ORDERED: METOCLOPRAMIDE HCL INJECTION 10 MG/2 ML VIAL IVPUSH ONE (16:00)
[2017-08-22] MEDS ORDERED: SODIUM CHLORIDE 1,000 ML IV STA (16:00)
[2017-08-22] MEDS ORDERED: METOCLOPRAMIDE HCL INJECTION 10 MG/2 ML VIAL ONE (16:03)
[2017-08-22 16:42] LABS: BASO % 0.8 % (0-2.0); EOS % 0.4 % (0-4.5); HEMATOCRIT 34.2 % (32.4-45.2); HEMOGLOBIN 11.6 GM/dL (10.7-15.3); LYMPH % 37.2 % (8-40); MCH 31.2 pg (25.7-33.7); MCHC 33.9 g/dl (32.0-36.0); MEAN CELL VOLUME 92.2 fl (80-96); MEAN PLT VOLUME 7.5 fl (7.5-11.1); MONO % 9.1 % (3.8-10.2); NEUT % 52.5 % (42.8-82.8); PLATELET COUNT 324 K/MM3 (134-434); RBC 3.71 M/mm3 (3.60-5.2); RDW 13.3 % (11.6-15.6)
[2017-08-22 17:04] LABS: INR 1.01 (0.82-1.09); PROTHROMBIN TIME (PATIENT) 11.4 SEC (9.7-13.0)
[2017-08-22 17:21] LABS: ALBUMIN 3.9 g/dl (3.4-5.0); ANION GAP 7 (8-16); BLOOD UREA NITROGEN 10 mg/dL (7-18); CALCIUM 8.4 mg/dL (8.5-10.1); CHLORIDE 109 mmol/L (98-107); CO2 25 mmol/L (21-32); GLUCOSE,RANDOM 81 mg/dL (74-106); POTASSIUM 3.8 mmol/L (3.5-5.1); SODIUM 141 mmol/L (136-145)
[2017-08-22 17:25] LABS: ALK PHOS 54 U/L (45-117); BILIRUBIN,TOTAL 0.6 mg/dL (0.2-1.0); CHOLESTEROL 153 mg/dL (50-200); CREATININE 0.5 mg/dL (0.55-1.02); HDL CHOLESTEROL 53 mg/dL (40-60); SGOT/AST 13 U/L (15-37); SGPT/ALT 19 U/L (12-78); TOT PROT 7.4 g/dl (6.4-8.2); TRIGLYCERIDES 61 mg/dL (35-160)
--- NOTE | 2017-08-22 18:31 | PDOC ---
Attending Attestation - Resident Resident Name: Tommy Elizabeth - ED Attending Attestation I have performed the following: I have examined & evaluated the patient, The case was reviewed & discussed with the resident, I agree w/resident's findings & plan, Exceptions are as noted - HPI HPI: 08/22/17 18:44 The patient is a 27 year old female with history of anemia who presents to the ED complaining of 1 day of binocular vision loss with associated global gradual onset headache. She reports multiple similar episodes of vision loss in the past , always associated with headache for the past few years. She states this episode has lasted longer than her previous headaches/vision loss. At this time , she states her vision is back and at baseline. She also complains of diffuse chest pain, ranked 6/10, earlier today that has since resolved. No pleuritic nature to pain. No shortness of breath or palpitations. No peripheral edema. No fever or chills. No nausea, vomiting, or diaphoresis. No numbness, tingling, or weakness. No treatments tried. She has never seen a neurologist for her headaches/vision loss. She states at baseline, she has blurry vision because she may need new glasses. Last had her eyes checked >2yrs ago. - Physicial Exam PE: 08/22/17 16:58 GENERAL: Awake, alert, and fully oriented, in no acute distress, eating dinner with her at the bedside. HEAD: No signs of trauma EYES: PERRLA, EOMI, visual mahoney full, sclera anicteric, conjunctiva clear. No evidence of papilledema. Pt does not have her glasses, so unable to test visual acuity. ENT: Auricles normal inspection, hearing grossly normal, nares patent, oropharynx clear without exudates. Moist mucosa NECK: Normal ROM, supple, no lymphadenopathy, JVD, or masses LUNGS: Breath sounds equal, clear to auscultation bilaterally. No wheezes, and no crackles HEART: Regular rate and rhythm, normal S1 and S2, no murmurs, rubs or gallops ABDOMEN: Soft, nontender, normoactive bowel sounds. No guarding, no rebound. No masses EXTREMITIES: Normal range of motion, no edema. No clubbing or cyanosis. No cords, erythema, or tenderness BACK: No midline spinal tenderness in cervical/thoracic/lumbar region NEUROLOGICAL: Normal speech, cranial nerves intact, negative pronator drift, 5/ 5 strength in all 4 extremities, normal sensation to light touch in all 4 extremities, normal cerebellar exam, normal gait, normal reflexes and tone SKIN: Warm, Dry, normal turgor, no rashes or lesions noted. - Medical Decision Making Cash Register Servicer used for interview. 08/22/17 18:31 27-year-old macedonian speaking female presents to the emergency Department with gradual onset global headache associated with binocular vision loss since this morning as well as CP. Vitals within normal limits, BP on my exam 124/78. Exam wnl, neuro intact. On my evaluation, after treatment with fluids, Reglan and Tylenol, the patient reports her baseline vision at this time and resolution of headache and CP. She reports that at baseline, her vision is normally blurry when she does not wear her glasses. In addition, she reports her vision has been blurry even with her reading glasses. She has had these glasses for greater than 2 years. It's possible the pt has headaches 2/2 incorrect eyeglass prescription. 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 Unlikely CVA due to complete resolution of sxs with resolution of headache. Given pt is post- and thus possibly hypercoagulable, will obtain CTH. Currently neurologically intact. 08/22/17 19:22 Pt continues to be asymptomatic at this time. CTH done, read is pending. If negative, will DC with neuro and ophtho f/u. 08/22/17 19:28 CTH neg, pt requests DC home. Likely ocular migraine. Understands to f/u with neuro and ophtho and return immediately if any new, worsening or concerning sxs. I discussed the physical exam findings, ancillary test results and final diagnoses with the patient. I answered all of the patient's questions. The patient was satisfied with the care received and felt comfortable with the discharge plan and treatment plan. The patient will call their primary care physician within 24 hours to arrange follow-up and will return to the Emergency Department with any new, persistent or worsening symptoms. Discharge Disposition - Diagnosis Vision loss, bilateral Headache Qualifiers: Headache type: unspecified Headache chronicity pattern: unspecified pattern Intractability: not intractable Qualified Code(s): R51 - Headache - Discharge Dispostion Disposition: HOME Condition at time of disposition: Improved Decision to Admit order: No - Referrals Referrals: Mitul Drake MD [Staff Physician] - Francesco Nava MD [Staff Physician] - Herson Rousseau MD [Primary Care Provider] - - Patient Instructions Printed Discharge Instructions: DI for Headache Additional Instructions: 1) As discussed, call Dr. Nava's office for a follow up appointment with the neurologist within 1 week for your headaches. 2) As discussed call Dr. Drake's office for a follow up appointment with an net wpf developer within 1 week for your vision. 3) Return to the emergency department immediately if you have an new, worsening , recurrent, or concerning symptoms such as loss of vision. - Post Discharge Activity
--- NOTE | 2017-08-22 19:45 | PDOC ---
*Physical Exam - Vital Signs Last Vital Signs Temp Pulse Resp BP Pulse Ox 98.5 F 54 L 19 135/79 100 08/22/17 14:57 08/22/17 14:57 08/22/17 14:57 08/22/17 14:57 08/22/17 14:57 ED Treatment Course - LABORATORY CBC & Chemistry Diagram: 08/22/17 16:15 08/22/17 16:15 - ADDITIONAL ORDERS Additional order review: Laboratory Results 08/22/17 08/22/17 08/22/17 16:15 16:15 16:15 PT with INR INR Sodium 141 Potassium 3.8 Chloride 109 H Carbon Dioxide 25 Anion Gap 7 L BUN 10 Creatinine 0.5 L Creat Clearance w eGFR > 60 Random Glucose 81 Calcium 8.4 L Total Bilirubin 0.6 AST 13 L ALT 19 Alkaline Phosphatase 54 Creatine Kinase 69 Troponin I < 0.02 Total Protein 7.4 Albumin 3.9 Triglycerides 61 Cholesterol 153 Total LDL Cholesterol 97 HDL Cholesterol 53 Serum , Qual Negative Blood Type A POSITIVE Antibody Screen Negative 08/22/17 16:15 PT with INR 11.40 INR 1.01 Sodium Potassium Chloride Carbon Dioxide Anion Gap BUN Creatinine Creat Clearance w eGFR Random Glucose Calcium Total Bilirubin AST ALT Alkaline Phosphatase Creatine Kinase Troponin I Total Protein Albumin Triglycerides Cholesterol Total LDL Cholesterol HDL Cholesterol Serum , Qual Blood Type Antibody Screen 08/22/17 16:15 RBC 3.71 MCV 92.2 MCHC 33.9 RDW 13.3 MPV 7.5 Neutrophils % 52.5 D Lymphocytes % 37.2 D Monocytes % 9.1 Eosinophils % 0.4 Basophils % 0.8 - Medications Given in the ED: ED Medications Discontinued Medications Generic Name Dose Route Start Last Admin Trade Name Freq PRN Reason Stop Dose Admin Sodium Chloride 1,000 mls @ 1,000 mls/hr 08/22/17 16:00 08/22/17 16:18 Normal Saline - IV 08/22/17 16:59 1,000 mls/hr ASDIR STA Administration Metoclopramide HCl 10 mg 08/22/17 16:00 08/22/17 16:18 Reglan Injection - IVPUSH 08/22/17 16:01 10 mg ONCE ONE Administration *DC/Admit/Observation/Transfer - Referrals Referrals: Mitul Drake MD [Staff Physician] - Francesco Nava MD [Staff Physician] - Herson Rousseau MD [Primary Care Provider] - - Patient Instructions Printed Discharge Instructions: DI for Headache Additional Instructions: 1) As discussed, call Dr. Nava's office for a follow up appointment with the neurologist within 1 week for your headaches. 2) As discussed call Dr. Drake's office for a follow up appointment with an industrial service technician within 1 week for your vision. 3) Return to the emergency department immediately if you have an new, worsening , recurrent, or concerning symptoms such as loss of vision. - Post Discharge Activity
--- NOTE | 2017-08-23 11:44 | EKG ---
Test Reason : Blood Pressure : / mmHG Vent. Rate : 052 BPM Atrial Rate : 052 BPM P-R Int : 166 ms QRS Dur : 084 ms QT Int : 506 ms P-R-T Axes : 068 033 036 degrees QTc Int : 470 ms SINUS BRADYCARDIA OTHERWISE NORMAL ECG WHEN COMPARED WITH ECG OF 22-JAN-2017 17:04, NO SIGNIFICANT CHANGE WAS FOUND Confirmed by UZAIR VINES MD ([id number]) on 08/23/2017 11:44:26 AM Referred By: Confirmed By:UZAIR VINES MD
== END 2017-08-22 20:05 | disposition home or self-care (01) ==
LOC: JER 14:40
PROC: 3E033GC Introduction of Other Therapeutic Substance into Peripheral Vein, Percutaneous Approach (ICD-10-PCS; principal; 2017-08-22)
DX: G43.909 Migraine, unspecified, not intractable, without status migrainosus (principal)
CPT/HCPCS: 36415; 70450-TC; 80053; 82465; 82550; 83718; 83721; 84478; 84484; 84703; 85025; 85610; 86850; 86900; 86901; 93005; 93010; 99283-25; J7030

== ENCOUNTER 2018-06-03 11:05 | Emergency (ER) | payer OTHER ==
--- NOTE | 2018-06-03 11:47 | PDOC ---
History of Present Illness - General Chief Complaint: Eye Problem Stated Complaint: RT PINK EYE Time Seen by Provider: 06/03/18 11:31 History Source: Patient Exam Limitations: No Limitations Past History - Past Medical History Allergies/Adverse Reactions: Allergies Allergy/AdvReac Type Severity Reaction Status Date / Time acetaminophen [From Tylenol] Allergy Intermediate Rash Verified 06/03/18 11:11 aspirin Allergy Intermediate Rash Verified 06/03/18 11:11 Home Medications: Ambulatory Orders Tobramycin 0.3% Ophth Soln [Tobrex Ophthalmic Solution -] 1 drop OD Q6HPO #1 bottle 06/03/18 Asthma: No Cancer: No Cardiac Disorders: No COPD: No Diabetes: No HTN: No Seizures: No Thyroid Disease: No - Surgical History Abdominal Surgery: Yes (csection ) - Reproductive History (#): 4 Para: 1 Cervical CA: No Dysfunctional Uterine Bleeding: No Ectopic : No Endometrial CA: No Polycystic Ovaries: No Therapeutic (s) & number: No Spontaneous : 2 - Immunization History Immunization Up to Date: No - Suicide/Smoking/Psychosocial Hx Smoking History: Never smoked Have you smoked in the past 12 months: No Hx Alcohol Use: No Drug/Substance Use Hx: No Substance Use Type: None Hx Substance Use Treatment: No *Physical Exam - Vital Signs Last Vital Signs Temp Pulse Resp BP Pulse Ox 98.4 F 65 18 102/63 100 06/03/18 11:11 06/03/18 11:11 06/03/18 11:11 06/03/18 11:11 06/03/18 11:11 - Physical Exam General Appearance: No: Apparent Distress HEENT: positive: Pharynx Normal, Other (+R eye injection, no pain on eye movement, no discharge noted; L eye normal). negative: Nasal Congestion, Rhinorrhea Respiratory/Chest: positive: Lungs Clear, Normal Breath Sounds. negative: Respiratory Distress Cardiovascular: positive: Regular Rhythm, Regular Rate, S1, S2. negative: Murmur Integumentary: positive: Normal Color Neurologic: positive: Alert, Normal Mood/Affect Moderate Sedation - Procedure Monitoring Vital Signs: Procedure Monitoring Vital Signs Temperature 98.4 F 06/03/18 11:11 Pulse Rate 65 06/03/18 11:11 Respiratory Rate 18 06/03/18 11:11 Blood Pressure 102/63 06/03/18 11:11 O2 Sat by Pulse Oximetry (%) 100 06/03/18 11:11 Medical Decision Making - Medical Decision Making 27 y/o F with no sig pmh presents with R eye redness x 3 days. Mentions waking up in morning with eyes shut tight and yellowish discharge around the eyes. Denies fever, eye pain, blurry vision, pain on eye movement. Likely bacterial conjunctivitis 06/03/18 11:41 *DC/Admit/Observation/Transfer Diagnosis at time of Disposition: Bacterial conjunctivitis of right eye - Discharge Dispostion Disposition: HOME Condition at time of disposition: Stable Decision to Admit order: No - Prescriptions Prescriptions: Tobramycin 0.3% Ophth Soln [Tobrex Ophthalmic Solution -] 1 drop OD Q6HPO #1 bottle - Referrals - Patient Instructions Printed Discharge Instructions: DI for Conjunctivitis Additional Instructions: Thank you for choosing Health system. It was a pleasure taking care of you. You have pink eye, likely bacterial in origin Use the eye drops four times daily for 5 days This condition is contagious and can spread by touch Be sure to wash hands often Return to the Emergency Department if your symptoms worsen or persist or have other concerning symptoms. Briana por elegir el [facility]. Fue un placer cuidar de ti. Tienes diego hooper, probablemente de origen bacteriano. Use las gotas para los ojos cuatro veces al da abbe 5 grimes. Esta condicin es contagiosa y puede propagarse al tacto. Asegrate de lavarte las jenni frecuentemente Regrese al Departamento de Emergencias si jackie sntomas empeoran o persisten o si tiene otros sntomas relacionados. Print Language: TURKMEN - Post Discharge Activity
[2018-06-03 11:50] VITALS: BP 102/63; PULSE 65; TEMP 98.4; BMI 25.7
== END 2018-06-03 11:55 | disposition home or self-care (01) ==
LOC: JERFT 11:05
DX: H10.31 Unspecified acute conjunctivitis, right eye (principal); B96.89 Other specified bacterial agents as the cause of diseases classified elsewhere
CPT/HCPCS: 99281-25

== ENCOUNTER 2018-07-05 20:17 | Emergency (ER) | payer OTHER ==
[2018-07-05 20:38] VITALS: BP 110/58; PULSE 75; TEMP 98.5; BMI 26.2
--- NOTE | 2018-07-05 20:38 | PDOC ---
Rapid Medical Evaluation Time Seen by Provider: 07/05/18 20:32 Medical Evaluation: Allergies Allergy/AdvReac Type Severity Reaction Status Date / Time acetaminophen [From Tylenol] Allergy Intermediate Rash Verified 06/03/18 11:11 aspirin Allergy Intermediate Rash Verified 06/03/18 11:11 07/05/18 20:32 I have performed a brief in-person evaluation of this patient. The patient presents with a chief complaint of:Concerned about "redness to face " Wants a full physical, Right flank pain maroon colored urine R ear pain no fevers Pertinent physical exam findings:NAD I have ordered the following:U preg and UA w/Cx The patient will proceed to the ED for further evaluation. Discharge Disposition - Diagnosis Hematuria, Ear pain, right - Referrals - Patient Instructions - Post Discharge Activity
[2018-07-05 21:14] LABS: EPI CELLS 3.3 /HPF (0-5); HYALINE CASTS 4 /hpf (0-8); URINE APPEARANCE CLEAR; URINE BACTERIA 105.498 /hpf (NEGATIVE); URINE BILIRUBIN NEGATIVE (<2.0 mg/dL); URINE COLOR YELLOW; URINE GLUCOSE (UA) NEGATIVE (NEGATIVE); URINE KETONE TRACE (NEGATIVE); URINE LEUK ESTERASE 1+ (NEGATIVE); URINE NITRITE NEGATIVE (NEGATIVE); URINE PROTEIN NEGATIVE (NEGATIVE); URINE RBC 3 /hpf (0-4); URINE WBC 5 /hpf (0-5)
[2018-07-05 21:15] LABS: HCG,QUALITATIVE URINE Negative
--- NOTE | 2018-07-05 21:27 | PDOC ---
History of Present Illness - General Chief Complaint: Urinary Problem Stated Complaint: DIZZY Time Seen by Provider: 07/05/18 20:32 History Source: Patient Exam Limitations: No Limitations - History of Present Illness Initial Comments: 07/05/18 21:23 HISTORY OF PRESENT ILLNESS: This is a 27-year-old woman denies medical history presents emergency department for evaluation of right ear pain, sore throat, dry cough for 1 day and lower back pain with dark red urine for the past 3 weeks. Patient denies any dysuria or urinary frequency. Patient reports intermittent nausea but has not vomited. Patient denies any headaches, fevers, chills, abdominal pain, rectal bleeding, constipation or diarrhea. No recent travel or sick contacts. PAST MEDICAL HISTORY: Denies past medical history SURGICAL HISTORY: Denies ALLERGIES: Tylenol and aspirin REVIEW OF SYSTEMS General/Constitutional: Denies fever or chills. Denies weakness, weight change. HEENT: See history of present illness Cardiovascular: Denies chest pain or shortness of breath. Respiratory: Denies cough, wheezing, or hemoptysis. Gastrointestinal: Denies nausea, vomiting, diarrhea or constipation. Denies rectal bleeding. Genitourinary: See history of present illness Musculoskeletal: Denies joint or muscle swelling or pain. Denies neck or back pain. Skin and breasts: Denies rash or easy bruising. Neurologic: Denies headache, vertigo, loss of consciousness, or loss of sensation. Psychiatric: Denies depression or anxiety. Endocrine: Denies increased thirst. Denies abnormal weight change. Hematologic/Lymphatic: Denies anemia, easy bleeding, or history of blood clots. Allergic/Immunologic: Denies hives or skin allergy. Denies latex allergy. PHYSICAL EXAM General Appearance: Well-appearing, appropriately dressed. No apparent distress , no intoxication. HEENT: EOMI, PERRLA, normal ENT inspection, normal voice. No conjunctival pallor. No photophobia, scleral icterus. Right TM with retractions present. No erythema or effusions noted. Left TM is within normal limits. External auditory canals clear without erythema. Oropharynx without erythema or exudates present. Cobblestoning and mucous present in the posterior aspect of the oropharynx. Neck: Supple. Trachea midline. No tenderness, rigidity, carotid bruit, stridor , lymphadenopathy, or thyromegaly. Respiratory/Chest: Lungs CTAB. No shortness of breath, chest tenderness, respiratory distress, accessory muscle use. No crackles, rales, rhonchi, stridor , wheezing, dullness Cardiovascular: RRR. S1, S2. No JVD, murmur, bradycardia, tachycardia. Vascular Pulses: Dorsalis-Pedis (R): 2+, Dorsalis-Pedis (L): 2+ Gastrointestinal/Abdominal: Normal bowel sounds. Abdomen soft, non-distended. No tenderness or rebound tenderness. No organomegaly, pulsatile mass, guarding, hernia, hepatomegaly, splenomegaly. Lymphatic: No adenopathy, tenderness. Musculoskeletal/Extremities: Normal inspection. FROM of all extremities, normal capillary refill. Pelvis Stable. Bilateral CVA tenderness. No tenderness to extremities, pedal edema, swelling, erythema or deformity. Integumentary: Appropriate color, dry, warm. No cyanosis, erythema, jaundice or rash Neurologic: stationary equipment mechanic II-XII intact. Fully oriented, alert. Appropriate mood/affect. Motor strength 5/5. No appreciable EOM palsy, facial droop or sensory deficit. Past History - Past Medical History Allergies/Adverse Reactions: Allergies Allergy/AdvReac Type Severity Reaction Status Date / Time acetaminophen [From Tylenol] Allergy Intermediate Rash Verified 06/03/18 11:11 aspirin Allergy Intermediate Rash Verified 06/03/18 11:11 Home Medications: Ambulatory Orders Tobramycin 0.3% Ophth Soln [Tobrex Ophthalmic Solution -] 1 drop OD Q6HPO #1 bottle 06/03/18 Asthma: No Cancer: No Cardiac Disorders: No COPD: No Diabetes: No HTN: No Seizures: No Thyroid Disease: No - Surgical History Abdominal Surgery: Yes (csection ) - Reproductive History (#): 4 Para: 1 Cervical CA: No Dysfunctional Uterine Bleeding: No Ectopic : No Endometrial CA: No Polycystic Ovaries: No Therapeutic (s) & number: No Spontaneous : 2 - Immunization History Immunization Up to Date: No - Suicide/Smoking/Psychosocial Hx Smoking History: Never smoked Have you smoked in the past 12 months: No Information on smoking cessation initiated: No Hx Alcohol Use: No Drug/Substance Use Hx: No Substance Use Type: None Hx Substance Use Treatment: No *Physical Exam - Vital Signs Last Vital Signs Temp Pulse Resp BP Pulse Ox 98.5 F 75 20 110/58 L 100 07/05/18 20:32 07/05/18 20:32 07/05/18 20:32 07/05/18 20:32 07/05/18 20:32 Moderate Sedation - Procedure Monitoring Vital Signs: Procedure Monitoring Vital Signs Temperature 98.5 F 07/05/18 20:32 Pulse Rate 75 07/05/18 20:32 Respiratory Rate 20 07/05/18 20:32 Blood Pressure 110/58 L 07/05/18 20:32 O2 Sat by Pulse Oximetry (%) 100 07/05/18 20:32 ED Treatment Course - LABORATORY CBC & Chemistry Diagram: 07/05/18 23:19 07/05/18 23:19 - ADDITIONAL ORDERS Additional order review: Laboratory Results 07/05/18 20:43 Urine Color Yellow Urine Appearance Clear Urine pH 6.0 Ur Specific [place] 1.024 Urine Protein Negative Urine Glucose (UA) Negative Urine Ketones Trace H Urine Blood 1+ Urine Nitrite Negative Urine Bilirubin Negative Urine Urobilinogen 1.0 Ur Leukocyte Esterase 1+ Urine WBC (Auto) 5 Urine RBC (Auto) 3 Urine Casts (Auto) 4 U Epithel Cells (Auto) 3.3 Urine Bacteria (Auto) 105.498 Urine HCG, Qual Negative Medical Decision Making - Medical Decision Making 07/05/18 21:26 A/P: 27-year-old female with a nasopharyngitis and flank pain with dark red urine Bilateral CVA tenderness Abdomen soft nontender nondistended Concern for kidney stone or infection. Urinalysis, urine culture, urine testing Reevaluate 07/05/18 21:30 Urinalysis notable for trace ketones, 1+ blood 1+ leuk esterase. Ultrasound of kidneys and bladder to rule out hydronephrosis. 07/06/18 01:10 Bladder Ultrasound as read by imaging customer contact sales associate: Uterus appears normal. Position of intrauterine device. Located in the lower uterine segment and cervix. No large ovarian cysts. No evidence of torsion Renal ultrasound as read by Dr. Ott: Negative exam. no sonographic abnormalities identified. 07/06/18 01:12 UA with trace ketones, 1+ blood, 1+ leuk esterase, 5 WBCs high-power field. Laboratory testing notable AIDA. Oxycodone 5 mg orally now Discharge home *DC/Admit/Observation/Transfer Diagnosis at time of Disposition: Nasopharyngitis Hematuria Qualifiers: Hematuria type: unspecified type Qualified Code(s): R31.9 - Hematuria, unspecified - Discharge Dispostion Disposition: HOME Condition at time of disposition: Fair Decision to Admit order: No - Referrals Referrals: Herson Rousseau MD [Primary Care Provider] - - Patient Instructions Additional Instructions: Make an appointment with her primary doctor for reevaluation. Return to emergency department for any new or worsening symptoms. Thank you very much for choosing us to provide your emergent health care needs. Rula margarito ana con mdico de sherineecera para reevaluacin. Regrese al departamento de emergencias para cualquier sntoma nuevo o que empeore. Muchas fransico por elegirnos para satisfacer jackie necesidades de atencin mdica de emergencia. - Post Discharge Activity Forms/Work/School Notes: Back to Work
[2018-07-05 23:31] LABS: BASO % 0.8 % (0-2.0); EOS % 0.3 % (0-4.5); HEMATOCRIT 35.4 % (32.4-45.2); HEMOGLOBIN 12.3 GM/dL (10.7-15.3); LYMPH % 24.8 % (8-40); MCH 31.4 pg (25.7-33.7); MCHC 34.6 g/dl (32.0-36.0); MEAN CELL VOLUME 90.6 fl (80-96); MEAN PLT VOLUME 7.3 fl (7.5-11.1); MONO % 9.6 % (3.8-10.2); NEUT % 64.5 % (42.8-82.8); PLATELET COUNT 329 K/MM3 (134-434); RBC 3.91 M/mm3 (3.60-5.2); RDW 14.2 % (11.6-15.6); WHITE BLOOD COUNT 8.8 K/mm3 (4.0-10.0)
[2018-07-05 23:52] LABS: ANION GAP 4 MMOL/L (8-16); BLOOD UREA NITROGEN 20 mg/dL (7-18); CALCIUM 8.6 mg/dL (8.5-10.1); CHLORIDE 108 mmol/L (98-107); CO2 26 mmol/L (21-32); GLUCOSE,RANDOM 78 mg/dL (74-106); SODIUM 138 mmol/L (136-145)
[2018-07-06] MEDS ORDERED: morphine CARPU-JECT 2 MG/1 ML DISP.SYRIN IVPUSH ONE (00:19)
[2018-07-06] MEDS ORDERED: SODIUM CHLORIDE 0.9% 500 ML INFUS.BAG IV ONE (00:19)
[2018-07-06] MEDS ORDERED: oxyCODONE HCL 5 MG TABLET PO ONE (00:30)
[2018-07-06] MEDS ORDERED: oxyCODONE HCL 5 MG TABLET ONE (00:33)
== END 2018-07-06 01:33 | disposition home or self-care (01) ==
LOC: JER 20:17
DX: J00 Acute nasopharyngitis [common cold] (principal); R31.9 Hematuria, unspecified
CPT/HCPCS: 36415; 76775-TC; 76856-TC; 80048; 81003; 84703; 85025; 87086; 99283-25

== ENCOUNTER 2018-09-27 23:15 | Emergency (ER) | payer OTHER ==
[2018-09-27 23:24] VITALS: BP 127/62; PULSE 70; TEMP 97.9; BMI 24.3
--- NOTE | 2018-09-28 00:26 | PDOC ---
Attending Attestation - Resident Resident Name: Ling Cummings - ED Attending Attestation I have performed the following: I have examined & evaluated the patient, The case was reviewed & discussed with the resident, I agree w/resident's findings & plan - HPI HPI: 09/28/18 00:25 Pt comes with a headache and CP. She has normal vitals and she appears well. - Physicial Exam PE: 09/28/18 00:25 Agree with resident exam. - Medical Decision Making 09/28/18 00:25 Pt has normal exam. She appears well. 09/28/18 19:23 Vitals normal; pt has normal labs and normal exam. She has no hx of migraines and she took little to nothing for the headaches. Vastly improved in our ER and ready to go home. No need for CT imaging at this time; she has a normal neuro exam. Heart Score/ECG Review - ECG Intrepretation Rhythm: Regular Rhythm - [place]: Normal - P and [place] Prominent R with upright T in V1 (true posterior IA): No Delta Wave(s) Present: No WPW: No - QRS Poor R Wave Progression: No Q Wave Present: No - ST and T Early Repolarization: Yes Non Specific ST-T Wave changes: No Flattened T Waves: No Prolonged Q-T Interval: No - ECG Impressions Normal ECG: Yes Non-specific ST Elevation: No Ischemic Changes: No Bradycardia: No Torsades toni Pointes: No WPW: No
[2018-09-28] MEDS ORDERED: SODIUM CHLORIDE 1,000 ML IV STA (00:45)
[2018-09-28] MEDS ORDERED: METOCLOPRAMIDE HCL INJECTION 10 MG/2 ML VIAL IVPUSH ONE (00:45)
--- NOTE | 2018-09-28 00:54 | PDOC ---
History of Present Illness <Yamileth Malagon - Last Filed: 09/28/18 02:51> - History of Present Illness Initial Comments: 28yo F with PMH of migraines complaining of headache and chest pain. Patient states this headache is similar to those she has had before. She has been referred to a neurologist but has not seen this specialist because she is afraid. The pain is rated 9/10 and described as "pressure" behind her left eye and at her posterior head. Nothing makes this pain better or worse. She tried two tablets of motrin yesterday which did not provide relief. Endorsing blurry vision and a numbness/heaviness feeling on the left side of her face. Unknown what her headache triggers are. Patient started feeling chest pain x 1 day, rated 7/10 and described as "pressure." It is located substernally and does not radiate. Nothing makes it better or worse. Father had an KS at age 53. Has been seen by a pegger in the past for a holter monitor x 1 week and found to have what sounds like bradycardia. Endorses subjective fever and chills. PCP: Dr. Herson Rousseau clinical outcomes manager: Dr. Daigle Cardio: Unknown <Ling Cummings - Last Filed: 09/28/18 19:32> - General Chief Complaint: Headache Stated Complaint: CHEST PAIN/LEFT SIDE HEADACE Time Seen by Provider: 09/28/18 00:09 Past History <Yamileth Malagon - Last Filed: 09/28/18 02:51> - Past Medical History Asthma: No Cancer: No Cardiac Disorders: No COPD: No Diabetes: No HTN: No Seizures: No Thyroid Disease: No - Surgical History Abdominal Surgery: Yes (csection ) - Reproductive History (#): 4 Para: 1 Cervical CA: No Dysfunctional Uterine Bleeding: No Ectopic : No Endometrial CA: No Polycystic Ovaries: No Therapeutic (s) & number: No Spontaneous : 2 - Immunization History Immunization Up to Date: No - Suicide/Smoking/Psychosocial Hx Smoking History: Never smoked Have you smoked in the past 12 months: No Hx Alcohol Use: No Drug/Substance Use Hx: No Substance Use Type: None Hx Substance Use Treatment: No <Ling Cummings - Last Filed: 09/28/18 19:32> - Past Medical History Allergies/Adverse Reactions: Allergies Allergy/AdvReac Type Severity Reaction Status Date / Time acetaminophen [From Tylenol] Allergy Intermediate Rash Verified 09/27/18 23:24 aspirin Allergy Intermediate Rash Verified 09/27/18 23:24 Home Medications: Ambulatory Orders Acetaminophen [Tylenol] 650 mg PO PRN 09/28/18 Pseudoephedrine HCl [Sudafed] 30 mg PO TID #21 tablet 09/28/18 Review of Systems - Review of Systems Comments:: Constitutional: +subjective fever, +chills HEENT: no throat pain, no dysphagia Cardiovascular: +chest pain, no palpitations Respiratory: no cough, no shortness of breath Gastrointestinal: no abdominal pain, +nausea Genitourinary: no dysuria, no frequency Musculoskeletal: no myalgia, no arthralgia Skin: no rash, no itching Neurologic: +headache, +weakness <Ling Cummings - Last Filed: 09/28/18 19:32> *Physical Exam - Vital Signs Last Vital Signs Temp Pulse Resp BP Pulse Ox 97.9 F 70 18 127/62 100 09/27/18 23:17 09/27/18 23:17 09/27/18 23:17 09/27/18 23:17 09/27/18 23:17 <Yamileth Malagon - Last Filed: 09/28/18 02:51> - Vital Signs Last Vital Signs Temp Pulse Resp BP Pulse Ox 97.9 F 70 18 127/62 100 09/27/18 23:17 09/27/18 23:17 09/27/18 23:17 09/27/18 23:17 09/27/18 23:17 - Physical Exam Comments: General: Awake, alert, and fully oriented, in no acute distress Head: No signs of trauma Eyes: EOMI, sclera anicteric ENT: Moist mucus membranes Neck: Normal ROM, supple Lungs: Lungs clear, Normal breath sounds Cardio: Regular rhythm, S1 and S2 present Abdomen: Soft, nontender Extremities: Normal range of motion, Distal pulses present, No calf tenderness SKIN: Warm, Dry, normal turgor Neurologic: Cranial nerves II through XII intact. Normal speech, strength, coordination, and gait. Endorsing numbness on left side of face. <Ling Cummings - Last Filed: 09/28/18 19:32> ED Treatment Course - LABORATORY CBC & Chemistry Diagram: 09/28/18 01:27 09/28/18 01:27 - ADDITIONAL ORDERS Additional order review: Laboratory Results 09/28/18 09/28/18 01:27 01:22 Sodium 141 Potassium 3.9 Chloride 108 H Carbon Dioxide 26 Anion Gap 7 L BUN 16.3 Creatinine 0.7 Est GFR (CKD-EPI)AfAm 135.70 Est GFR (CKD-EPI)NonAf 117.08 Random Glucose 85 Calcium 8.6 Total Bilirubin 0.5 AST 11 L ALT 15 Alkaline Phosphatase 72 Troponin I < 0.02 Total Protein 7.6 Albumin 3.8 Urine HCG, Qual Negative 09/28/18 01:27 RBC 3.77 MCV 91.1 MCHC 33.4 RDW 13.3 MPV 7.5 Neutrophils % 64.6 Lymphocytes % 21.4 Monocytes % 12.7 H Eosinophils % 0.8 D Basophils % 0.5 - Medications Given in the ED: ED Medications Discontinued Medications Generic Name Dose Route Start Last Admin Trade Name Freq PRN Reason Stop Dose Admin Sodium Chloride 1,000 mls @ 1,000 mls/hr 09/28/18 00:45 09/28/18 01:33 Normal Saline - IV 09/28/18 01:44 1,000 mls/hr ASDIR STA Administration Ketorolac Tromethamine 30 mg 09/28/18 02:12 09/28/18 02:17 Toradol Injection - IVPUSH 09/28/18 02:13 30 mg ONCE ONE Administration Metoclopramide HCl 10 mg 09/28/18 00:45 09/28/18 01:33 Reglan Injection - IVPUSH 09/28/18 00:46 10 mg ONCE ONE Administration <Yamileth Malagon - Last Filed: 09/28/18 02:51> - LABORATORY CBC & Chemistry Diagram: 09/28/18 01:27 09/28/18 01:27 <Ling Cummings - Last Filed: 09/28/18 19:32> Medical Decision Making - Medical Decision Making 28yo F with PMH of migraines complaining of headache and chest pain. DDX including but not limited to complex migraine, MSK, ACS, Labs, EKG 09/28/18 00:53 CBC WBC 7.5 K/mm3 (4.0-10.0) 09/28/18 01:27 RBC 3.77 M/mm3 (3.60-5.2) 09/28/18 01:27 Hgb 11.5 GM/dL (10.7-15.3) 09/28/18 01:27 Hct 34.4 % (32.4-45.2) 09/28/18 01:27 MCV 91.1 fl (80-96) 09/28/18 01:27 MCH 30.5 pg (25.7-33.7) 09/28/18 01:27 MCHC 33.4 g/dl (32.0-36.0) 09/28/18 01:27 RDW 13.3 % (11.6-15.6) 09/28/18 01:27 Plt Count 375 K/MM3 (134-434) 09/28/18 01:27 MPV 7.5 fl (7.5-11.1) 09/28/18 01:27 Absolute Neuts (auto) 4.8 K/mm3 (1.5-8.0) 09/28/18 01:27 Neutrophils % 64.6 % (42.8-82.8) 09/28/18 01:27 Lymphocytes % 21.4 % (8-40) 09/28/18 01:27 Monocytes % 12.7 % (3.8-10.2) H 09/28/18 01:27 Eosinophils % 0.8 % (0-4.5) D 09/28/18 01:27 Basophils % 0.5 % (0-2.0) 09/28/18 01:27 Nucleated RBC % 0 % (0-0) 09/28/18 01:27 No anemia or leukocytosis CMP Sodium 141 mmol/L (136-145) 09/28/18 01:27 Potassium 3.9 mmol/L (3.5-5.1) 09/28/18 01:27 Chloride 108 mmol/L (98-107) H 09/28/18 01:27 Carbon Dioxide 26 mmol/L (21-32) 09/28/18 01:27 Anion Gap 7 MMOL/L (8-16) L 09/28/18 01:27 BUN 16.3 mg/dL (7-18) 09/28/18 01:27 Creatinine 0.7 mg/dL (0.55-1.3) 09/28/18 01:27 Est GFR (CKD-EPI)AfAm 135.70 09/28/18 01:27 Est GFR (CKD-EPI)NonAf 117.08 09/28/18 01:27 Random Glucose 85 mg/dL (74-106) 09/28/18 01:27 Calcium 8.6 mg/dL (8.5-10.1) 09/28/18 01:27 Total Bilirubin 0.5 mg/dL (0.2-1) 09/28/18 01:27 AST 11 U/L (15-37) L 09/28/18 01:27 ALT 15 U/L (13-61) 09/28/18 01:27 Alkaline Phosphatase 72 U/L (45-117) 09/28/18 01:27 Troponin I < 0.02 ng/ml (0.00-0.05) 09/28/18 01:27 Total Protein 7.6 g/dl (6.4-8.2) 09/28/18 01:27 Albumin 3.8 g/dl (3.4-5.0) 09/28/18 01:27 Electrolytes unremarkable Normal Cr Tpn undetectable Urine test negative Patient feeling better Amenable to follow up with primary care physician Discharged 09/28/18 02:23 <Ling Cummings - Last Filed: 09/28/18 19:32> *DC/Admit/Observation/Transfer - Discharge Dispostion Decision to Admit order: No <Yamileth Malagon - Last Filed: 09/28/18 02:51> <Ling Cummings - Last Filed: 09/28/18 19:32> Diagnosis at time of Disposition: Sinusitis, Headache, Nasal congestion - Discharge Dispostion Disposition: HOME Condition at time of disposition: Improved - Prescriptions Prescriptions: Pseudoephedrine HCl [Sudafed] 30 mg PO TID #21 tablet - Referrals Referrals: Herson Rousseau MD [Primary Care Provider] - - Patient Instructions Printed Discharge Instructions: DI for Sinusitis - Post Discharge Activity
[2018-09-28] MEDS ORDERED: METOCLOPRAMIDE HCL INJECTION 10 MG/2 ML VIAL ONE (01:27)
[2018-09-28] MEDS ORDERED: KETOROLAC TROMETHAMINE 30 MG/1 ML VIAL IVPUSH ONE (02:12)
[2018-09-28 02:16] LABS: ALBUMIN 3.8 g/dl (3.4-5.0); ALK PHOS 72 U/L (45-117); ANION GAP 7 MMOL/L (8-16); BILIRUBIN,TOTAL 0.5 mg/dL (0.2-1); BLOOD UREA NITROGEN 16.3 mg/dL (7-18); CALCIUM 8.6 mg/dL (8.5-10.1); CHLORIDE 108 mmol/L (98-107); CO2 26 mmol/L (21-32); CREATININE 0.7 mg/dL (0.55-1.3); GLUCOSE,RANDOM 85 mg/dL (74-106); POTASSIUM 3.9 mmol/L (3.5-5.1); SGOT/AST 11 U/L (15-37); SGPT/ALT 15 U/L (13-61); SODIUM 141 mmol/L (136-145); TOT PROT 7.6 g/dl (6.4-8.2)
[2018-09-28] MEDS ORDERED: KETOROLAC TROMETHAMINE 30 MG/1 ML VIAL ONE (02:16)
[2018-09-28 02:31] LABS: BASO % 0.5 % (0-2.0); EOS % 0.8 % (0-4.5); HEMATOCRIT 34.4 % (32.4-45.2); HEMOGLOBIN 11.5 GM/dL (10.7-15.3); LYMPH % 21.4 % (8-40); MCH 30.5 pg (25.7-33.7); MCHC 33.4 g/dl (32.0-36.0); MEAN CELL VOLUME 91.1 fl (80-96); MEAN PLT VOLUME 7.5 fl (7.5-11.1); MONO % 12.7 % (3.8-10.2); NEUT % 64.6 % (42.8-82.8); PLATELET COUNT 375 K/MM3 (134-434); RBC 3.77 M/mm3 (3.60-5.2); RDW 13.3 % (11.6-15.6); WHITE BLOOD COUNT 7.5 K/mm3 (4.0-10.0)
--- NOTE | 2018-09-29 17:08 | EKG ---
Test Reason : Blood Pressure : / mmHG Vent. Rate : 071 BPM Atrial Rate : 071 BPM P-R Int : 170 ms QRS Dur : 082 ms QT Int : 398 ms P-R-T Axes : 054 028 048 degrees QTc Int : 432 ms NORMAL SINUS RHYTHM NORMAL ECG WHEN COMPARED WITH ECG OF 25-SEP-2017 14:01, NO SIGNIFICANT CHANGE WAS FOUND Confirmed by MD CLARISSA, MARCO ([id number]) on 09/29/2018 5:07:54 PM Referred By: Confirmed By:MARCO ROMO MD
== END 2018-09-28 03:04 | disposition home or self-care (01) ==
LOC: JER 23:15
PROC: 3E0333Z Introduction of Anti-inflammatory into Peripheral Vein, Percutaneous Approach (ICD-10-PCS; principal; 2018-09-27)
PROC: 3E033GC Introduction of Other Therapeutic Substance into Peripheral Vein, Percutaneous Approach (ICD-10-PCS; 2018-09-27)
DX: J01.90 Acute sinusitis, unspecified (principal); R07.9 Chest pain, unspecified
CPT/HCPCS: 36415; 80053; 84484; 84703; 85025; 93005; 93010; 96374; 96375; 99283-25; J7030

== ENCOUNTER 2018-12-02 17:03 | Emergency (ER) | payer OTHER ==
--- NOTE | 2018-12-02 17:21 | PDOC ---
Rapid Medical Evaluation Time Seen by Provider: 12/02/18 17:19 Medical Evaluation: Allergies Allergy/AdvReac Type Severity Reaction Status Date / Time acetaminophen [From Tylenol] Allergy Intermediate Rash Verified 09/27/18 23:24 aspirin Allergy Intermediate Rash Verified 09/27/18 23:24 12/02/18 17:19 CC: chest pain s/p landlord banging on her door PE: No focal findings. Orders: EKG Patient will proceed to ED for continued evaluation. Discharge Disposition - Diagnosis Feeling anxious - Referrals - Patient Instructions - Post Discharge Activity
[2018-12-02 17:24] VITALS: BP 124/71; PULSE 81; TEMP 98.4; BMI 24.0
[2018-12-02] MEDS ORDERED: ALPRAZolam 0.25 MG TABLET PO ONE (17:59)
[2018-12-02] MEDS ORDERED: ALPRAZolam 0.25 MG TABLET ONE (18:03)
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
--- NOTE | 2018-12-03 16:13 | EKG ---
Test Reason : Blood Pressure : / mmHG Vent. Rate : 066 BPM Atrial Rate : 066 BPM P-R Int : 156 ms QRS Dur : 080 ms QT Int : 408 ms P-R-T Axes : 050 040 051 degrees QTc Int : 427 ms NORMAL SINUS RHYTHM NORMAL ECG WHEN COMPARED WITH ECG OF 27-SEP-2018 23:12, NO SIGNIFICANT CHANGE WAS FOUND Confirmed by MD CLARISSA, MARCO ([id number]) on 12/03/2018 4:12:50 PM Referred By: Confirmed By:MARCO ROMO MD
== END 2018-12-02 18:18 | disposition home or self-care (01) ==
LOC: JERFT 17:03
DX: F41.0 Panic disorder [episodic paroxysmal anxiety] (principal)
CPT/HCPCS: 93005; 93010; 99281-25

== ENCOUNTER 2021-08-01 12:39 | Emergency (ER) | payer OTHER ==
[2021-08-01 13:04] VITALS: BP 130/81; PULSE 81; TEMP 98.2; BMI 25.7
[2021-08-01] MEDS ORDERED: SODIUM CHLORIDE 1,000 ML IV STA (14:04)
[2021-08-01 15:09] LABS: BASO % 0.5 % (0-2.0); EOS % 0.4 % (0-4.5); HEMATOCRIT 35.7 % (32.4-45.2); HEMOGLOBIN 11.9 GM/dL (10.7-15.3); LYMPH % 22.7 % (8-40); MCH 30.3 pg (25.7-33.7); MCHC 33.4 g/dl (32.0-36.0); MEAN CELL VOLUME 90.6 fl (80-96); MEAN PLT VOLUME 7.2 fl (7.5-11.1); MONO % 8.5 % (3.8-10.2); NEUT % 67.9 % (42.8-82.8); PLATELET COUNT 393 10^3/uL (134-434); RBC 3.94 M/mm3 (3.60-5.2); RDW 13.4 % (11.6-15.6); WHITE BLOOD COUNT 7.1 K/mm3 (4.0-10.0)
[2021-08-01 15:20] LABS: PH,URINE 8.5 (5.0-8.0); URINE APPEARANCE CLEAR; URINE BILIRUBIN NEGATIVE (NEGATIVE); URINE COLOR YELLOW; URINE GLUCOSE (UA) NEGATIVE (NEGATIVE); URINE KETONE NEGATIVE (NEGATIVE); URINE LEUK ESTERASE NEGATIVE (NEGATIVE); URINE NITRITE NEGATIVE (NEGATIVE); URINE PROTEIN NEGATIVE (NEGATIVE)
[2021-08-01 15:22] LABS: CALCIUM 8.6 mg/dL (8.5-10.1)
[2021-08-01 15:22] LABS: HCG,QUALITATIVE URINE Negative
[2021-08-01 15:23] LABS: ALBUMIN 3.7 g/dl (3.4-5.0); BLOOD UREA NITROGEN 11.8 mg/dL (7-18)
[2021-08-01 15:26] LABS: CREATININE 0.7 mg/dL (0.55-1.3)
[2021-08-01 15:28] LABS: BILIRUBIN,TOTAL 0.5 mg/dL (0.2-1); TOT PROT 7.3 g/dl (6.4-8.2)
== END 2021-08-01 19:47 | disposition home or self-care (01) ==
LOC: JER 12:39
PROC: 3E0337Z Introduction of Electrolytic and Water Balance Substance into Peripheral Vein, Percutaneous Approach (ICD-10-PCS; principal; 2021-08-01)
DX: R07.89 Other chest pain (principal); F41.9 Anxiety disorder, unspecified
CPT/HCPCS: 36415; 71046-TC-FY; 80053; 81003; 84484; 84703; 85025; 93005; 93010; 99285-25

== ENCOUNTER 2023-05-13 18:41 | Emergency (ER) | payer OTHER ==
[2023-05-13 19:11] VITALS: BP 123/76; PULSE 93; RESP 20; TEMP 98.6; BMI 26.6
== END 2023-05-13 21:45 | disposition home or self-care (01) ==
LOC: JER 18:41
DX: F10.129 Alcohol abuse with intoxication, unspecified (principal); S09.90XA Unspecified injury of head, initial encounter; W01.198A Fall on same level from slipping, tripping and stumbling with subsequent striking against other object, initial encounter; Y93.01 Activity, walking, marching and hiking; Y90.6 Blood alcohol level of 120-199 mg/100 ml
CPT/HCPCS: 36415; 70450-TC; 72125-TC; 80307; 84703; 99284-25

== ENCOUNTER 2024-02-07 18:57 | Emergency (ER) | payer OTHER ==
[2024-02-07 19:06] VITALS: BP 119/75; PULSE 72; RESP 16; TEMP 99.5; BMI 29.5
[2024-02-07 20:51] LABS: BASO % 0.5 % (0-2.0); EOS % 0.2 % (0-4.5); HEMATOCRIT 38.6 % (32.4-45.2); HEMOGLOBIN 12.9 GM/dL (10.7-15.3); LYMPH % 22.4 % (8-40); MCH 30.2 pg (25.7-33.7); MCHC 33.4 g/dl (32.0-36.0); MEAN CELL VOLUME 90.2 fl (80-96); MEAN PLT VOLUME 7.2 fl (7.5-11.1); MONO % 7.6 % (3.8-10.2); NEUT % 69.3 % (42.8-82.8); PLATELET COUNT 404 10^3/uL (134-434); RBC 4.28 M/mm3 (3.60-5.2); RDW 13.3 % (11.6-15.6); WHITE BLOOD COUNT 9.5 K/mm3 (4.0-10.0)
[2024-02-07 21:07] LABS: POTASSIUM 3.9 mmol/L (3.5-5.1)
[2024-02-07 21:09] LABS: BLOOD UREA NITROGEN 22.8 mg/dL (7-18); CALCIUM 9.1 mg/dL (8.5-10.1)
[2024-02-07] MEDS ORDERED: MECLIZINE HCL 25 MG TABLET (FP) ONE (21:09)
[2024-02-07] MEDS: MECLIZINE HCL 25 MG TABLET (FP) PO ONE (21:12)
[2024-02-07 21:13] LABS: CREATININE 0.9 mg/dL (0.55-1.3)
[2024-02-07 22:02] LABS: HIV INTERPRETATION NEGATIVE (NEGATIVE)
== END 2024-02-07 21:43 | disposition home or self-care (01) ==
LOC: JER 18:57
DX: R42 Dizziness and giddiness (principal); R00.2 Palpitations; R53.83 Other fatigue; M25.512 Pain in left shoulder; H92.03 Otalgia, bilateral; Z20.822 Contact with and (suspected) exposure to COVID-19
CPT/HCPCS: 0241U-QW; 36415; 80048; 84439; 84443; 84703; 85025; 86803; 87389; 93005; 93010; 99284-25

== ENCOUNTER 2024-02-11 17:51 | Emergency (ER) | payer OTHER ==
[2024-02-11 18:17] VITALS: BP 113/72; PULSE 72; RESP 14; TEMP 98.4; BMI 29.5
[2024-02-11] MEDS ORDERED: METHOCARBAMOL 500 MG TABLET ONE (19:42)
[2024-02-11] MEDS: METHOCARBAMOL 500 MG TABLET PO ONE (20:24)
== END 2024-02-11 22:00 | disposition home or self-care (01) ==
LOC: JER 17:51
DX: R07.81 Pleurodynia (principal); M25.512 Pain in left shoulder; M25.552 Pain in left hip; M79.605 Pain in left leg; M54.2 Cervicalgia; M54.6 Pain in thoracic spine
CPT/HCPCS: 70450-TC; 71101-TC-LT-FY; 73030-TC-LT-FY; 73502-TC-LT-FY; 99284-25